=== PATIENT | male | born 1935 | race African-American/Black ===

== ENCOUNTER 2018-05-23 15:08 | Inpatient (IN) | payer OTHER ==
[2018-05-23] MEDS ORDERED: ACETAMINOPHEN 1000 MG/100 ML VIAL (NON FORMULARY) IVPB ONE (15:41)
[2018-05-23] MEDS ORDERED: SODIUM CHLORIDE 1,000 ML IV STA (15:41)
[2018-05-23 16:19] LABS: EOS % 0.2 % (0-4.5); HEMATOCRIT 39.7 % (35.4-49); HEMOGLOBIN 13.3 GM/dL (11.7-16.9); LYMPH % 16.5 % (8-40); MCH 29.5 pg (25.7-33.7); MCHC 33.5 g/dl (32.0-35.9); MEAN PLT VOLUME 8.1 fl (7.5-11.1); MONO % 12.2 % (3.8-10.2); NEUT % 70.1 % (42.8-82.8); PLATELET COUNT 177 K/MM3 (134-434); RBC 4.51 M/mm3 (4.00-5.60); RDW 12.9 % (11.9-15.9); WHITE BLOOD COUNT 3.6 K/mm3 (4.0-10.0)
[2018-05-23 16:21] LABS: VENOUS PC02 49.6 mmHg (38-52); VENOUS PH 7.4 (7.32-7.42); VENOUS PO2 22.4 mmHg (28-48)
[2018-05-23 16:40] LABS: INR 1.07 (0.83-1.09); PROTHROMBIN TIME (PATIENT) 12.6 SEC (9.7-13.0)
--- NOTE | 2018-05-23 16:40 | PDOC ---
Attending Attestation - Resident Resident Name: Levy Maradiaga - ED Attending Attestation I have performed the following: I have examined & evaluated the patient, The case was reviewed & discussed with the resident, I agree w/resident's findings & plan - HPI HPI: 05/23/18 16:40 82 YOM with h/o Parkinsons dementia, HTN, HLD, DM2 presenting with AMS, unwitnessed fall. baseline with dementia and tremors from PK. 05/23/18 16:49 - Physicial Exam PE: 05/23/18 16:50 PE as documented in Resident note. alert, oriented to person only. NAD, PERRL, EOMI, MMM, nl conjunctiva. neck supple, no meningeal signs. RRR, lungs clear. abdomen soft, NTND. warm to touch. no calf tenderness. no peripheral edema. + tremulous. no focal neuro deficits. BROWN x4 - Medical Decision Making 05/23/18 16:51 hpi as documented VS reviewed, +fever Tmax 100.8; normotensive, HR borderline 90-100s. no respiratory distress. DDx. viral syndrome, influenza, pneumonia, sepsis, dehydration, electrolyte/ metabolic derangements. SDH, SAH, EDH, c spine injury /fx, infection, UTI, CVA, SACK REPAIRER abnormality, arrhythmia, ACS. labs and lytes reviewed, +leukopenic mildly noted to 3.6K. lytes are normal lactic_elevated, hydrate and repeat, trend UA_pending influenza pending EKG nonischemic, NSR and nonspecific T wave abnormalities. CXR w/o infiltrative pattern or consolidation/effusion or vascular congestion. given IVF and tylenol for the fever. CT head pending to eval for intracranial abnormality, mass or bleed. CT cspine added r/o fx/injury with unwitnessed fall call to daughter, who resides with pt. anticipate admission for the septic workup, unclear source at time of sign out at 5pm. 05/23/18 16:55 05/26/18 17:03
[2018-05-23 16:42] LABS: URINE APPEARANCE CLEAR; URINE BILIRUBIN NEGATIVE (<2.0 mg/dL); URINE COLOR AMBER; URINE GLUCOSE (UA) 2+ (NEGATIVE); URINE KETONE TRACE (NEGATIVE); URINE LEUK ESTERASE NEGATIVE (NEGATIVE); URINE NITRITE NEGATIVE (NEGATIVE); URINE PROTEIN 2+ (NEGATIVE); URINE UROBILINOGEN 4.0 E.U/dl mg/dL (0.2-1.0)
[2018-05-23 16:42] LABS: ACTIVATED PTT 32.6 SECONDS (25.2-36.5)
[2018-05-23 16:47] LABS: ALBUMIN 3.6 g/dl (3.4-5.0); ALK PHOS 145 U/L (45-117); ANION GAP 10 MMOL/L (8-16); BILIRUBIN,TOTAL 0.7 mg/dL (0.2-1); BLOOD UREA NITROGEN 18 mg/dL (7-18); CHLORIDE 97 mmol/L (98-107); CO2 28 mmol/L (21-32); CREATININE 1.2 mg/dL (0.55-1.3); GLUCOSE,RANDOM 274 mg/dL (74-106); POTASSIUM 3.7 mmol/L (3.5-5.1); SGOT/AST 56 U/L (15-37); SGPT/ALT 37 U/L (13-61); SODIUM 134 mmol/L (136-145); TOT PROT 7.2 g/dl (6.4-8.2)
[2018-05-23 16:51] LABS: URINE MUCUS FEW
--- NOTE | 2018-05-23 16:53 | PDOC ---
History of Present Illness - General Chief Complaint: SIRS, Suspected/Possible Stated Complaint: WEAKNESS Time Seen by Provider: 05/23/18 15:25 History Source: Family Exam Limitations: Clinical Condition - History of Present Illness Initial Comments: 05/23/18 16:58 Patient is an 82M with history of cervical spondylosis, HTN, DM, Parkinson's, dementia (son at bedside, unable to describe normal mental status lives with daughter) here today with lethargy that started two days ago with a fever. Son at bedside states that there was an unmeasured fever two days ago, no other symptoms such as cough, rhinorrhea, shortness of breath or chest pain were noted. Patient denies pain anywhere, but history is limited by his mental status (a&ox1 - self). No sick contacts at home. Past History - Past Medical History Allergies/Adverse Reactions: Allergies Allergy/AdvReac Type Severity Reaction Status Date / Time No Known Allergies Allergy Verified 05/23/18 15:18 Home Medications: Ambulatory Orders Aspirin [Ester Chewable] 81 mg PO DAILY 05/23/18 Atorvastatin Ca [Lipitor] 10 mg PO HS 05/23/18 Donepezil HCl 23 mg PO HS 05/23/18 Lisinopril/Hydrochlorothiazide [Lisinopril-Hctz 10-12.5 mg Tab] 1 each PO DAILY 05/23/18 Memantine HCl [Namenda -] 10 mg PO DAILY 05/23/18 Metformin HCl [Glucophage] 500 mg PO BID 05/23/18 CVA: No COPD: No Dementia: Yes Diabetes: Yes HTN: Yes - Suicide/Smoking/Psychosocial Hx Smoking History: Never smoked Have you smoked in the past 12 months: No Information on smoking cessation initiated: No Hx Alcohol Use: No Drug/Substance Use Hx: No Review of Systems - Review of Systems Able to Perform ROS?: No (2/2 clinical condition) *Physical Exam - Vital Signs Last Vital Signs Temp Pulse Resp BP Pulse Ox 100.8 F H 96 H 20 137/69 97 05/23/18 15:40 05/23/18 16:39 05/23/18 16:39 05/23/18 16:39 05/23/18 16:39 - Physical Exam Comments: 05/23/18 17:00 GENERAL: Awake, alert, and oriented to self, in no acute distress HEAD: No signs of trauma, normocephalic, atraumatic EYES: PERRLA, EOMI, sclera anicteric, conjunctiva clear ENT: Auricles normal inspection, hearing grossly normal, nares patent, oropharynx clear without exudates. Moist mucosa NECK: No meningeal signs LUNGS: No distress, speaks full sentences, clear to auscultation bilaterally HEART: Regular rate and rhythm, normal S1 and S2, no murmurs, rubs or gallops, peripheral pulses normal and equal bilaterally. ABDOMEN: Soft, nontender, normoactive bowel sounds. No guarding, no rebound. No masses EXTREMITIES: Normal inspection, Normal range of motion, no edema. No clubbing or cyanosis. NEUROLOGICAL: Cranial nerves II through XII grossly intact. Mask-like facies, cogwheel rigidity, moves all extremities SKIN: Warm, Dry, normal turgor, no rashes or lesions noted. Moderate Sedation - Procedure Monitoring Vital Signs: Procedure Monitoring Vital Signs Temperature 100.8 F H 05/23/18 15:40 Pulse Rate 96 H 05/23/18 16:39 Respiratory Rate 20 05/23/18 16:39 Blood Pressure 137/69 05/23/18 16:39 O2 Sat by Pulse Oximetry (%) 97 05/23/18 16:39 ED Treatment Course - LABORATORY CBC & Chemistry Diagram: 05/23/18 16:04 05/23/18 16:04 - ADDITIONAL ORDERS Additional order review: Laboratory Results 05/23/18 05/23/18 05/23/18 16:31 16:04 16:04 PT with INR INR PTT (Actin FS) VBG pH POC VBG pCO2 POC VBG pO2 Mixed VBG HCO3 Sodium 134 L Potassium 3.7 Chloride 97 L Carbon Dioxide 28 Anion Gap 10 BUN 18 Creatinine 1.2 Creat Clearance w eGFR 57.96 Random Glucose 274 H Calcium 9.0 Total Bilirubin 0.7 AST 56 H ALT 37 Alkaline Phosphatase 145 H Troponin I 0.04 Total Protein 7.2 Albumin 3.6 Urine Color Ann-Marie Urine Appearance Clear Urine pH 5.0 Ur Specific [place] 1.025 Urine Protein 2+ H Urine Glucose (UA) 2+ H Urine Ketones Trace H Urine Blood Negative Urine Nitrite Negative Urine Bilirubin Negative Urine Urobilinogen 4.0 e.u/dl Ur Leukocyte Esterase Negative Urine WBC (Auto) <1 Urine RBC (Auto) <1 Urine Mucus Few 05/23/18 05/23/18 16:04 16:04 PT with INR 12.60 INR 1.07 PTT (Actin FS) 32.6 VBG pH 7.40 POC VBG pCO2 49.6 POC VBG pO2 22.4 L Mixed VBG HCO3 29.9 H Sodium Potassium Chloride Carbon Dioxide Anion Gap BUN Creatinine Creat Clearance w eGFR Random Glucose Calcium Total Bilirubin AST ALT Alkaline Phosphatase Troponin I Total Protein Albumin Urine Color Urine Appearance Urine pH Ur Specific [place] Urine Protein Urine Glucose (UA) Urine Ketones Urine Blood Urine Nitrite Urine Bilirubin Urine Urobilinogen Ur Leukocyte Esterase Urine WBC (Auto) Urine RBC (Auto) Urine Mucus 05/23/18 16:04 RBC 4.51 MCV 88.0 MCHC 33.5 RDW 12.9 MPV 8.1 Neutrophils % 70.1 Lymphocytes % 16.5 Monocytes % 12.2 H Eosinophils % 0.2 Basophils % 1.0 - RADIOLOGY Radiology Studies Ordered: Category Date Time Status CERVICAL SPINE CT W/O CONTR [CT] Stat CT Scan 05/23/18 15:[address] WITHOUT CONTRAST [CT] Stat CT Scan 05/23/18 15:41 Ordered CHEST X-RAY PORTABLE* [RAD] Stat Radiology 05/23/18 15:40 Taken - Medications Given in the ED: ED Medications Discontinued Medications Generic Name Dose Route Start Last Admin Trade Name Bernardoq PRN Reason Stop Dose Admin Acetaminophen 1,000 mg 05/23/18 15:41 05/23/18 16:17 Ofirmev Injection - IVPB 05/23/18 15:42 1,000 mg ONCE ONE Administration Sodium Chloride 1,000 mls @ 1,000 mls/hr 05/23/18 15:41 05/23/18 16:17 Normal Saline - IV 05/23/18 16:40 1,000 mls/hr ASDIR STA Administration Medical Decision Making - Medical Decision Making 05/23/18 17:02 Patient is an 82M with history of cervical spondylosis, htn, dm, dementia here today with altered mental status. No focal symptoms on exam, but history and exam limited by patient's mental status. DDx is broad, and includes, but is not limited to: UTI, pneumonia, syncope, viral syndrome. Febrile to 100.8, septic workup initiated. Head CT added CBC, CMP normal. UA normal. CXR shows no infiltrate, but limited in quality. Lactate >4. Given 1L fluid so far and BPs stable. No source, will wagner-scan to attempt to find source of infection. 05/23/18 19:24 Lactate improving, 3.3. Patient barely able to tolerate wagner-scan, repeated attempts had to be made given agitation. 05/23/18 19:26 CT head normal. 05/23/18 20:59 CT C-spine negative for acute pathology. 05/23/18 21:21 CT chest shows ? infiltrate in lingula and LLL. Will admit for pneumonia. *DC/Admit/Observation/Transfer Diagnosis at time of Disposition: Pneumonia - Discharge Dispostion Condition at time of disposition: Stable Decision to Admit order: Yes - Referrals Referrals: Keke Pena MD [Primary Care Provider] - - Patient Instructions - Post Discharge Activity
[2018-05-23] MEDS ORDERED: VANCOMYCIN 1 GM in D5W (PRE-DOCKED) 1,000 MG/250 ML IVPB ONE (16:55)
[2018-05-23] MEDS ORDERED: PIPERACILLIN/TAZOB 4.5 GM 4.5 GM in DEXTROSE 5%-WATER 100 ML IVPB ONE (16:56)
[2018-05-23] MEDS ORDERED: PIPERACILLIN/TAZOB 4.5 GM 4.5 GM/100 ML BAG IVPB ONE (18:26)
[2018-05-23] MEDS ORDERED: VANCOMYCIN 1 GRAM (PRE-DOCKED) 1,000 MG/250 ML BAG IVPB ONE ×2 (18:26)
[2018-05-23] MEDS ORDERED: ERYTHROMYCIN 0.5% OPHTHALMIC OINTMENT 3.5 GM TUBE OS ONE (21:49)
[2018-05-23] MEDS ORDERED: ERYTHROMYCIN 0.5% OPHTHALMIC OINTMENT 3.5 GM TUBE ONE ×2 (21:52→23:11)
[2018-05-23] MEDS ORDERED: SODIUM CHLORIDE 1,000 ML IV SCH (22:45)
--- NOTE | 2018-05-23 23:09 | HP ---
PCP: Keke Pena CHIEF COMPLAINT: Lethargy HISTORY OF PRESENT ILLNESS: This is an 82 year old man who comes to the ED with his son because of lethargy. The patient has dementia and is unable to provide a history. Family reported that he has been having fevers and has appeared lethargic at home for the last 2 days. Nothing else unusual was noted. PAST MEDICAL HISTORY Hypertension Type 2 DM Dementia Cervical spondylosis PAST SURGICAL HISTORY Unobtainable Social History: Smoking: Never smoked as per ED record Alcohol: No as per ED record Drugs: No as per ED record Recent Travel: None Family History: Unable to obtain Allergies No Known Allergies Allergy (Verified 05/23/18 15:18) Home Medications Medication Instructions Recorded Aspirin [Ester Chewable] 81 mg PO DAILY 05/23/18 Atorvastatin Ca [Lipitor] 10 mg PO HS 05/23/18 Donepezil HCl 23 mg PO HS 05/23/18 Lisinopril/Hydrochlorothiazide 1 each PO DAILY 05/23/18 [Lisinopril-Hctz 10-12.5 mg Tab] Memantine HCl [Namenda -] 10 mg PO DAILY 05/23/18 Metformin HCl [Glucophage] 500 mg PO BID 05/23/18 REVIEW OF SYSTEMS Unable to obtain PHYSICAL EXAMINATION Vital Signs - 24 hr 05/23/18 05/23/18 05/23/18 15:11 15:40 16:39 Temperature 99.3 F 100.8 F H Pulse Rate 101 H Pulse Rate [ 96 H Apical] Respiratory 20 20 Rate Blood Pressure 130/84 Blood Pressure 137/69 [Right Arm] O2 Sat by Pulse 97 97 Oximetry (%) 05/23/18 21:44 Temperature 98.0 F Pulse Rate Pulse Rate [ 90 Apical] Respiratory 20 Rate Blood Pressure Blood Pressure 130/70 [Right Arm] O2 Sat by Pulse 100 Oximetry (%) GENERAL: Awake, alert, and oriented only to person, in no acute distress. HEAD: Normal with no signs of trauma. EYES: Pupils equal, round and reactive to light, sclerae anicteric, bilateral thick yellow drainage. EARS, NOSE, THROAT: Ears normal, nares patent, oropharynx clear without exudates. Moist mucous membranes. NECK: Normal range of motion, supple without lymphadenopathy, JVD, or masses. LUNGS: Breath sounds equal, clear to auscultation bilaterally with poor inspiratory effort. No wheezes, and no crackles. No accessory muscle use. HEART: Regular rate and rhythm, normal S1 and S2 without murmur, rub or gallop. ABDOMEN: Soft, nontender, not distended, normoactive bowel sounds, no guarding, no rebound, no masses. No hepatomegaly or splenomegaly. MUSCULOSKELETAL: Normal range of motion at all joints. No bony deformities or tenderness. No CVA tenderness. UPPER EXTREMITIES: 2+ pulses, warm, well-perfused. No cyanosis. No clubbing. No peripheral edema. LOWER EXTREMITIES: 2+ pulses, warm, well-perfused. No calf tenderness. No peripheral edema. NEUROLOGICAL: Unable to fully assess - patient not cooperative with exam. PSYCHIATRIC: Unable to assess. SKIN: Warm, dry, normal turgor; multiple small raised erythematous lesions over both arms, chest, abdomen, both upper legs; normal capillary refill. Laboratory Results - last 24 hr 05/23/18 05/23/18 05/23/18 16:04 16:04 16:04 WBC 3.6 L RBC 4.51 Hgb 13.3 Hct 39.7 MCV 88.0 MCH 29.5 MCHC 33.5 RDW 12.9 Plt Count 177 MPV 8.1 Absolute Neuts (auto) 2.6 Neutrophils % 70.1 Lymphocytes % 16.5 Monocytes % 12.2 H Eosinophils % 0.2 Basophils % 1.0 Nucleated RBC % 0 PT with INR 12.60 INR 1.07 PTT (Actin FS) 32.6 VBG pH 7.40 POC VBG pCO2 49.6 POC VBG pO2 22.4 L Mixed VBG HCO3 29.9 H Sodium Potassium Chloride Carbon Dioxide Anion Gap BUN Creatinine Creat Clearance w eGFR Random Glucose Lactic Acid Calcium Total Bilirubin AST ALT Alkaline Phosphatase Troponin I Total Protein Albumin Urine Color Urine Appearance Urine pH Ur Specific [place] Urine Protein Urine Glucose (UA) Urine Ketones Urine Blood Urine Nitrite Urine Bilirubin Urine Urobilinogen Ur Leukocyte Esterase Urine WBC (Auto) Urine RBC (Auto) Urine Mucus Influenza A (Rapid) Influenza B (Rapid) 05/23/18 05/23/18 05/23/18 16:04 16:04 16:04 WBC RBC Hgb Hct MCV MCH MCHC RDW Plt Count MPV Absolute Neuts (auto) Neutrophils % Lymphocytes % Monocytes % Eosinophils % Basophils % Nucleated RBC % PT with INR INR PTT (Actin FS) VBG pH POC VBG pCO2 POC VBG pO2 Mixed VBG HCO3 Sodium 134 L Potassium 3.7 Chloride 97 L Carbon Dioxide 28 Anion Gap 10 BUN 18 Creatinine 1.2 Creat Clearance w eGFR 57.96 Random Glucose 274 H Lactic Acid 4.3 H* Calcium 9.0 Total Bilirubin 0.7 AST 56 H ALT 37 Alkaline Phosphatase 145 H Troponin I 0.04 Total Protein 7.2 Albumin 3.6 Urine Color Urine Appearance Urine pH Ur Specific [place] Urine Protein Urine Glucose (UA) Urine Ketones Urine Blood Urine Nitrite Urine Bilirubin Urine Urobilinogen Ur Leukocyte Esterase Urine WBC (Auto) Urine RBC (Auto) Urine Mucus Influenza A (Rapid) Influenza B (Rapid) 05/23/18 05/23/18 05/23/18 16:31 16:31 18:22 WBC RBC Hgb Hct MCV MCH MCHC RDW Plt Count MPV Absolute Neuts (auto) Neutrophils % Lymphocytes % Monocytes % Eosinophils % Basophils % Nucleated RBC % PT with INR INR PTT (Actin FS) VBG pH POC VBG pCO2 POC VBG pO2 Mixed VBG HCO3 Sodium Potassium Chloride Carbon Dioxide Anion Gap BUN Creatinine Creat Clearance w eGFR Random Glucose Lactic Acid 3.3 H* Calcium Total Bilirubin AST ALT Alkaline Phosphatase Troponin I Total Protein Albumin Urine Color Ann-Marie Urine Appearance Clear Urine pH 5.0 Ur Specific [place] 1.025 Urine Protein 2+ H Urine Glucose (UA) 2+ H Urine Ketones Trace H Urine Blood Negative Urine Nitrite Negative Urine Bilirubin Negative Urine Urobilinogen 4.0 e.u/dl Ur Leukocyte Esterase Negative Urine WBC (Auto) <1 Urine RBC (Auto) <1 Urine Mucus Few Influenza A (Rapid) Negative Influenza B (Rapid) Negative Chest x-ray: No acute process Head CT: Mild chronic small vessel ischemic changes. Otherwise, negative unenhanced CT of the brain. C-spine CT: No acute cervical fracture. Multilevel degenerative changes with spinal stenosis and neural foraminal narrowing, as described above on a level by level basis. Chest CT: Mild elevation of the left hemidiaphragm. Mild consolidations in the adjacent lingula and left lower lobe may be due to chronic atelectasis, scarring , or infiltrates. Scattered atelectasis and fibrotic changes in the remainder of the lungs. No pleural effusions or pneumothorax. No evidence for aortic dissection. No obvious pulmonary embolism but this exam is not optimized to evaluate the pulmonary arteries. Mild cardiomegaly without significant pericardial effusion. Mild gynecomastia. CT abdomen/pelvis: Small left hepatic cyst. The gallbladder, pancreas, adrenal glands, and spleen are grossly unremarkable. Bilateral renal cortical scarring and left renal cysts. No renal or urinary calculi. No AAA. No evidence for diverticulitis, small bowel obstruction, free fluid, or free air. Prior proximal colon partial resection. ASSESSMENT/PLAN: This is an 82 year old man with a history of HTN, hyperlipidemia, type 2 DM, dementia who presented to the ED with fevers and lethargy x 2 days. 1. Severe sepsis (temp 100.8, HR 101, WBC 3.6, lactic acid 4.3) secondary to pneumonia - Continue IV fluid - Monitor lactic acid - Zosyn, Vancomycin given in ED - Start Rocephin, Zithromax - Oxygen to maintain saturation >90% - Hold metformin 2. Hypertension - Continue lisinopril, HCTZ 3. Hyperlipidemia - Continue Lipitor 4. Type 2 DM - Hold metformin secondary to lactic acidemia - Fingersticks with Novolog sliding scale 5. 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 Dementia - Continue Namenda, Aricept Visit type - Emergency Visit Emergency Visit: Yes Care time: The patient presented to the Emergency Department on the above date and was hospitalized for further evaluation of their emergent condition. - New Patient This patient is new to me today: Yes Date on this admission: 05/23/18 - Critical Care Critical Care patient: No
[2018-05-23] MEDS: ATORVASTATIN CA 10 MG TABLET (FP) PO SCH (23:19)
[2018-05-24] MEDS: CIPROFLOXACIN HCL 0.3% OPHTH 2.5ML BOTTLE OU SCH ×5 (06:02→22:05)
[2018-05-24] MEDS ORDERED: HEPARIN NA (PORCINE) 5,000 UNITS/ML 1ML VIAL ONE (06:03)
[2018-05-24] MEDS: HEPARIN NA (PORCINE) 5,000 UNITS/ML 1ML VIAL SQ SCH ×3 (06:07→22:05)
[2018-05-24] MEDS ORDERED: INSULIN (NOVOLOG) ASPART 100 UNITS/ML 10ML VIAL ONE (06:09)
[2018-05-24 06:51] LABS: EOS % 0.2 % (0-4.5); HEMATOCRIT 36.1 % (35.4-49); LYMPH % 20.8 % (8-40); MCH 28.7 pg (25.7-33.7); MCHC 33.3 g/dl (32.0-35.9); MEAN CELL VOLUME 86.3 fl (80-96); MEAN PLT VOLUME 8.6 fl (7.5-11.1); MONO % 12.7 % (3.8-10.2); NEUT % 65.3 % (42.8-82.8); PLATELET COUNT 180 K/MM3 (134-434); RBC 4.18 M/mm3 (4.00-5.60); RDW 12.9 % (11.9-15.9); WHITE BLOOD COUNT 3.1 K/mm3 (4.0-10.0)
[2018-05-24] MEDS: INSULIN SLIDING SCALE (NOVOLOG) 1 VIAL SQ SCH ×4 (07:02→21:49)
[2018-05-24 07:13] LABS: ANION GAP 8 MMOL/L (8-16); BLOOD UREA NITROGEN 14 mg/dL (7-18); CALCIUM 8.5 mg/dL (8.5-10.1); CHLORIDE 99 mmol/L (98-107); CO2 29 mmol/L (21-32); CREATININE 0.9 mg/dL (0.55-1.3); GLUCOSE,RANDOM 150 mg/dL (74-106); POTASSIUM 3.4 mmol/L (3.5-5.1); SODIUM 136 mmol/L (136-145)
[2018-05-24] MEDS ORDERED: ACETAMINOPHEN 325 MG TABLET (FP) PO PRN (07:24)
[2018-05-24] MEDS ORDERED: AZITHROMYCIN IVPB 500 MG/250 ML BAG IVPB SCH (10:00)
[2018-05-24] MEDS ORDERED: CEFTRIAXONE 1 GM in DEXTROSE 5%-WATER - 50 ML IVPB SCH (10:00)
[2018-05-24] MEDS ORDERED: PATIENT'S OWN MEDICATION (NON-FORMULARY) (Lisinopril/Hydrochlorothiazide [Lisinopril-Hctz PO SCH (10:00)
[2018-05-24] MEDS ORDERED: HYDROCHLOROTHIAZIDE 12.5 MG CAPSULE (FP) PO SCH (10:00)
--- NOTE | 2018-05-24 10:06 | EKG ---
Test Reason : Blood Pressure : / mmHG Vent. Rate : 092 BPM Atrial Rate : 092 BPM P-R Int : 128 ms QRS Dur : 080 ms QT Int : 382 ms P-R-T Axes : 000 011 102 degrees QTc Int : 472 ms NORMAL SINUS RHYTHM WITH SINUS ARRHYTHMIA NONSPECIFIC T WAVE ABNORMALITY PROLONGED QT ABNORMAL ECG NO PREVIOUS ECGS AVAILABLE Confirmed by VANESSA VELAZQUEZ MD ([id number]) on 05/24/2018 10:05:41 AM Referred By: Confirmed By:VANESSA VELAZQUEZ MD
[2018-05-24] MEDS: ACETAMINOPHEN 1000 MG/100 ML VIAL (NON FORMULARY) IVPB PRN ×2 (10:40→22:06)
[2018-05-24] MEDS: ASPIRIN 81 MG CHEWABLE TABLETS PO SCH (11:59)
[2018-05-24] MEDS: LISINOPRIL 10 MG TABLET (FP) PO SCH (12:00)
[2018-05-24] MEDS: MEMANTINE HCL 10 MG TABLET (FP) PO SCH (12:00)
--- NOTE | 2018-05-24 13:59 | PN ---
Progress Note (short form) - Note Progress Note: pt seen/ examined chart reviewed. awake having fever. not taking meds bp high Vital Signs Temp 102.0 F H 05/24/18 06:57 Pulse 104 H 05/24/18 06:57 Resp 20 05/24/18 06:57 BP 185/84 H 05/24/18 06:57 Pulse Ox 99 05/24/18 01:02 Intake & Output 05/23/18 05/24/18 05/24/18 23:59 11:59 23:59 Intake Total 200 Output Total 200 Balance 0 Weight 180 lb Intake: IVPB 200 Output: Urine 200 [place] 200 Other: Height 5 ft 10 in Body Mass Index (BMI) 25.8 Weight Measurement Method Est/Stated by Patient Active Medications Acetaminophen (Tylenol -) 650 mg PO Q4H PRN PRN Reason: FEVER Acetaminophen (Ofirmev Injection -) 1,000 mg IVPB Q8H PRN PRN Reason: FEVER Last Admin: 05/24/18 10:40 Dose: 1,000 mg Aspirin (Asa -) 81 mg PO DAILY [facility] Last Admin: 05/24/18 11:59 Dose: 81 mg Atorvastatin Calcium (Lipitor -) 10 mg PO HS [facility] Last Admin: 05/23/18 23:19 Dose: 10 mg Ciprofloxacin (Ciloxan 0.3% Eye Drops -) 1 drop OU Q4HWA [facility] Last Admin: 05/24/18 11:58 Dose: Not Given Heparin Sodium (Porcine) (Heparin -) 5,000 unit SQ TID [facility] Last Admin: 05/24/18 06:07 Dose: 5,000 unit Azithromycin (Zithromax 500mg Ivpb (Pre-Docked)) 500 mg in 250 mls @ 250 mls/ hr IVPB DAILY [facility] Ceftriaxone Sodium 1 gm/ (Dextrose) 50 mls @ 100 mls/hr IVPB DAILY [facility]; Protocol Potassium Chloride/Dextrose/Sod Cl (D5-1/2ns+20 Meq Kcl -) 20 meq in 1,000 mls @ 100 mls/hr IV ASDIR [facility] Insulin Aspart (Novolog Vial Sliding Scale -) 1 vial SQ ACHS [facility]; Protocol Last Admin: 05/24/18 11:57 Dose: Not Given Lisinopril (Prinivil) 10 mg PO DAILY [facility] Last Admin: 05/24/18 12:00 Dose: 10 mg Memantine (Namenda -) 10 mg PO DAILY [facility] Last Admin: 05/24/18 12:00 Dose: 10 mg Nitroglycerin (Nitro-Bid 2% Paste -) 0.5 inch TD ONCE ONE Stop: 05/24/18 13:57 Non-Formulary Medication (Donepezil Hcl [Donepezil Hcl]) 23 mg PO HS [facility] CBC, BMP 05/24/18 05:55 05/24/18 05:55 physical exam Drowsy but arousable Neck--supple Lungs--diminished Abdomen--soft Extremities--no edema assessment and plan Likley pneumonia abx i/d consult--- change fluids -- d5 1/2 ns for now with k supplement hold hctz for now nitro paste today for bp f/u cultures. f/u labs will follow discussed with patient's son also Problem List - Problems (1) Dementia Code(s): F03.90 - UNSPECIFIED DEMENTIA WITHOUT BEHAVIORAL DISTURBANCE (2) Hypertension Code(s): I10 - ESSENTIAL (PRIMARY) HYPERTENSION (3) Pneumonia Code(s): J18.9 - PNEUMONIA, UNSPECIFIED ORGANISM
[2018-05-24] MEDS ORDERED: NITROGLYCERIN 2% OINTMENT - 1GM PACKET TD ONE (14:30)
--- NOTE | 2018-05-24 15:13 | CON.ID ---
Consult Consult Specialty:: infectious diseases Referred by:: Reason for Consultation:: pneumonia - History of Present Illness Chief Complaint: confusion History of Present Illness: 82M with history of cervical spondylosis, HTN, DM, Parkinson's, dementia here today with lethargy that started two days ago with a fever. Son at bedside states that there was an unmeasured fever two days ago, no other symptoms such as cough, rhinorrhea, shortness of breath or chest pain were noted. Patient denies pain anywhere, but history is limited by his mental status . No sick contacts at home. patient is confused no history available history obtained from the charts - History Source History Provided By: Medical Record Limitations to Obtaining History: Clinical Condition - Alcohol/Substance Use Hx Alcohol Use: No - Smoking History Smoking history: Never smoked Have you smoked in the past 12 months: No Home Medications - Allergies Allergies/Adverse Reactions: Allergies Allergy/AdvReac Type Severity Reaction Status Date / Time No Known Allergies Allergy Verified 05/23/18 15:18 - Home Medications Home Medications: Ambulatory Orders Aspirin [Ester Chewable] 81 mg PO DAILY 05/23/18 Atorvastatin Ca [Lipitor] 10 mg PO HS 05/23/18 Lisinopril/Hydrochlorothiazide [Lisinopril-Hctz 10-12.5 mg Tab] 1 each PO DAILY 05/23/18 Memantine HCl [Namenda -] 10 mg PO DAILY 05/23/18 Metformin HCl [Glucophage] 500 mg PO BID 05/23/18 RX: Donepezil HCl 23 mg PO HS 05/23/18 Review of Systems Unable to obtain ROS, reason: unable to obtsin Physical Exam Vital Signs: Vital Signs Temperature 102.0 F H 05/24/18 06:57 Pulse Rate 104 H 05/24/18 06:57 Respiratory Rate 20 05/24/18 06:57 Blood Pressure 185/84 H 05/24/18 06:57 O2 Sat by Pulse Oximetry (%) 99 05/24/18 01:02 Constitutional: Yes: Well Nourished, No Distress, Calm Eyes: Yes: Conjunctiva Clear HENT: Yes: Atraumatic, Normocephalic Neck: Yes: Supple, Trachea Midline Cardiovascular: Yes: Regular Rate and Rhythm Respiratory: Yes: Regular, Poor Air Entry (resp effort) Gastrointestinal: Yes: Normal Bowel Sounds, Soft Musculoskeletal: Yes: WNL Extremities: Yes: WNL Neurological: Yes: Alert, Other (oriented to himself) Psychiatric: Yes: Alert, Other Labs: CBC, BMP 05/24/18 05:55 05/24/18 05:55 Imaging - Results Chest X-ray: Report Reviewed, Image Reviewed Cat Scan: Report Reviewed, Image Reviewed Assessment/Plan patients findings noted elevation of diaphragm noted Problem List - Problems (1) Fecal impaction Code(s): K56.41 - FECAL IMPACTION (2) Dementia Code(s): F03.90 - UNSPECIFIED DEMENTIA WITHOUT BEHAVIORAL DISTURBANCE (3) Hypertension Code(s): I10 - ESSENTIAL (PRIMARY) HYPERTENSION (4) Pneumonia Code(s): J18.9 - PNEUMONIA, UNSPECIFIED ORGANISM plann await for cx r/o uti jennifer guajardo close watch on how patient responds rest as per the team
[2018-05-24] MEDS: D5-1/2NS+20 MEQ KCL - 20 MEQ/1,000 ML INFUS.BAG IV SCH (16:09)
[2018-05-24] MEDS: PIPERACILLIN/TAZOB 3.375 GM 3.375 GM in DEXTROSE 5%-WATER - 50 ML IVPB SCH (19:21)
[2018-05-24] MEDS ORDERED: PATIENT'S OWN MEDICATION (NON-FORMULARY) (Donepezil Hcl [Donepezil Hcl] 23 MG) PO SCH (22:00)
[2018-05-24] MEDS: ATORVASTATIN CA 10 MG TABLET (FP) PO SCH (22:35)
[2018-05-25] MEDS: PIPERACILLIN/TAZOB 3.375 GM 3.375 GM in DEXTROSE 5%-WATER - 50 ML IVPB SCH ×3 (01:45→17:26)
[2018-05-25] MEDS: INSULIN SLIDING SCALE (NOVOLOG) 1 VIAL SQ SCH ×4 (06:07→21:47)
[2018-05-25] MEDS: CIPROFLOXACIN HCL 0.3% OPHTH 2.5ML BOTTLE OU SCH ×5 (06:07→21:47)
[2018-05-25] MEDS: HEPARIN NA (PORCINE) 5,000 UNITS/ML 1ML VIAL SQ SCH ×3 (06:07→21:46)
[2018-05-25 08:19] LABS: BASO % 1.8 % (0-2.0); EOS % 0.5 % (0-4.5); HEMATOCRIT 33.7 % (35.4-49); HEMOGLOBIN 11.2 GM/dL (11.7-16.9); LYMPH % 25.4 % (8-40); MCH 28.7 pg (25.7-33.7); MCHC 33.2 g/dl (32.0-35.9); MEAN CELL VOLUME 86.5 fl (80-96); MEAN PLT VOLUME 8.6 fl (7.5-11.1); MONO % 13.8 % (3.8-10.2); NEUT % 58.5 % (42.8-82.8); PLATELET COUNT 179 K/MM3 (134-434); RBC 3.89 M/mm3 (4.00-5.60); RDW 13.1 % (11.9-15.9); WHITE BLOOD COUNT 2.9 K/mm3 (4.0-10.0)
[2018-05-25 08:49] LABS: ALK PHOS 114 U/L (45-117); ANION GAP 8 MMOL/L (8-16); BILIRUBIN,TOTAL 0.6 mg/dL (0.2-1); BLOOD UREA NITROGEN 16 mg/dL (7-18); CALCIUM 7.8 mg/dL (8.5-10.1); CHLORIDE 100 mmol/L (98-107); CO2 29 mmol/L (21-32); GLUCOSE,RANDOM 164 mg/dL (74-106); POTASSIUM 3.4 mmol/L (3.5-5.1); SGOT/AST 63 U/L (15-37); SGPT/ALT 41 U/L (13-61); SODIUM 136 mmol/L (136-145); TOT PROT 6.4 g/dl (6.4-8.2)
[2018-05-25] MEDS ORDERED: PIPERACILLIN/TAZOBACTAM 3.375 GM VIAL IVPB ONE ×2 (09:44→17:13)
[2018-05-25] MEDS ORDERED: DEXTROSE 5%-WATER - 50 ML IVPB ONE ×2 (09:44→17:13)
[2018-05-25] MEDS: MEMANTINE HCL 10 MG TABLET (FP) PO SCH (09:48)
[2018-05-25] MEDS: ASPIRIN 81 MG CHEWABLE TABLETS PO SCH (09:48)
[2018-05-25] MEDS: LISINOPRIL 10 MG TABLET (FP) PO SCH (09:48)
[2018-05-25] MEDS ORDERED: PT OWN MED DRAWER 7, Y5N ONE (09:50)
[2018-05-25] MEDS: D5-1/2NS+20 MEQ KCL - 20 MEQ/1,000 ML INFUS.BAG IV SCH ×3 (11:36→23:19)
[2018-05-25] MEDS: ACETAMINOPHEN 1000 MG/100 ML VIAL (NON FORMULARY) IVPB PRN (12:29)
[2018-05-25 12:52] VITALS: BMI 27.6
--- NOTE | 2018-05-25 12:57 | PN ---
Progress Note (short form) - Note Progress Note: events noted pt is awake dementia no distress Vital Signs - 24 hr 05/24/18 05/24/18 05/24/18 16:05 22:00 22:16 Temperature 98.7 F 101.9 F H Pulse Rate 87 94 H Respiratory 18 18 Rate Blood Pressure 120/70 157/71 O2 Sat by Pulse 98 Oximetry (%) 05/25/18 05/25/18 05/25/18 01:15 04:31 04:50 Temperature 98.5 F 98.7 F Pulse Rate 92 H 97 H Respiratory 18 19 19 Rate Blood Pressure 129/61 132/77 O2 Sat by Pulse 98 Oximetry (%) 05/25/18 05/25/18 05/25/18 05:00 09:00 12:07 Temperature 98.4 F 99.2 F 102.1 F H Pulse Rate 91 H 98 H Respiratory 19 20 Rate Blood Pressure 136/64 141/80 O2 Sat by Pulse Oximetry (%) Current Medications Generic Name Dose Route Start Last Admin Trade Name Freq PRN Reason Stop Dose Admin Acetaminophen 650 mg 05/24/18 07:24 Tylenol - PO Q4H PRN FEVER Acetaminophen 1,000 mg 05/24/18 10:28 05/25/18 12:29 Ofirmev Injection - IVPB 1,000 mg Q8H PRN Administration FEVER Aspirin 81 mg 05/24/18 10:00 05/25/18 09:48 Asa - PO 81 mg DAILY ALISSA Administration Atorvastatin Calcium 10 mg 05/23/18 23:00 05/24/18 22:35 Lipitor - PO 10 mg HS ALISSA Administration Ciprofloxacin 1 drop 05/24/18 06:00 05/25/18 09:51 Ciloxan 0.3% Eye Drops - OU 1 drop Q4HWA ALISSA Administration Heparin Sodium (Porcine) 5,000 unit 05/24/18 06:00 05/25/18 06:07 Heparin - SQ 5,000 unit TID ALISSA Administration Potassium Chloride/Dextrose/Sod Cl 20 meq in 1,000 mls @ 100 mls/hr 05/24/18 14:00 05/25/18 11:36 D5-1/2ns+20 Meq Kcl - IV 100 mls/hr ASDIR ALISSA Administration Piperacillin Sod/Tazobactam 50 mls @ 100 mls/hr 05/24/18 18:00 05/25/18 09:48 Sod 3.375 gm/ Dextrose IVPB 100 mls/hr Q8H-IV ALISSA Administration Protocol Insulin Aspart 1 vial 05/24/18 07:00 05/25/18 11:32 Novolog Vial Sliding Scale - SQ 4 units ACHS ALISSA Administration Protocol Lisinopril 10 mg 05/24/18 10:00 05/25/18 09:48 Prinivil PO 10 mg DAILY ALISSA Administration Memantine 10 mg 05/24/18 10:00 05/25/18 09:48 Namenda - PO 10 mg DAILY ALISSA Administration Non-Formulary Medication 23 mg 05/24/18 22:00 Donepezil Hcl [Donepezil Hcl] PO [facility] Laboratory Results - last 24 hr 05/25/18 05/25/18 05/25/18 06:04 07:00 07:00 WBC 2.9 L RBC 3.89 L Hgb 11.2 L Hct 33.7 L MCV 86.5 MCH 28.7 MCHC 33.2 RDW 13.1 Plt Count 179 MPV 8.6 Absolute Neuts (auto) 1.7 Neutrophils % 58.5 Lymphocytes % 25.4 D Monocytes % 13.8 H Eosinophils % 0.5 D Basophils % 1.8 Nucleated RBC % 0 Sodium 136 Potassium 3.4 L Chloride 100 Carbon Dioxide 29 Anion Gap 8 BUN 16 Creatinine 1.0 Creat Clearance w eGFR > 60 POC Glucometer 182 Random Glucose 164 H Calcium 7.8 L Total Bilirubin 0.6 AST 63 H ALT 41 Alkaline Phosphatase 114 Total Protein 6.4 Albumin 3.0 L 05/25/18 11:31 WBC RBC Hgb Hct MCV MCH MCHC RDW Plt Count MPV Absolute Neuts (auto) Neutrophils % Lymphocytes % Monocytes % Eosinophils % Basophils % Nucleated RBC % Sodium Potassium Chloride Carbon Dioxide Anion Gap BUN Creatinine Creat Clearance w eGFR POC Glucometer 206 Random Glucose Calcium Total Bilirubin AST ALT Alkaline Phosphatase Total Protein Albumin S1 S2 RRR Lungs decreased breath sounds Abd-soft, NT no edema PLAN cultures negative on iv antibiotics iv fluids ID eval noted BP is better controlled Problem List - Problems (1) Fecal impaction Code(s): K56.41 - FECAL IMPACTION (2) Dementia Code(s): F03.90 - UNSPECIFIED DEMENTIA WITHOUT BEHAVIORAL DISTURBANCE (3) Hypertension Code(s): I10 - ESSENTIAL (PRIMARY) HYPERTENSION (4) Pneumonia Code(s): J18.9 - PNEUMONIA, UNSPECIFIED ORGANISM
--- NOTE | 2018-05-25 15:20 | PN ---
Progress Note, Physician History of Present Illness: patient more stable more alert comfortable - Current Medication List Current Medications: Active Medications Acetaminophen (Tylenol -) 650 mg PO Q4H PRN PRN Reason: FEVER Acetaminophen (Ofirmev Injection -) 1,000 mg IVPB Q8H PRN PRN Reason: FEVER Last Admin: 05/25/18 12:29 Dose: 1,000 mg Aspirin (Asa -) 81 mg PO DAILY [facility] Last Admin: 05/25/18 09:48 Dose: 81 mg Atorvastatin Calcium (Lipitor -) 10 mg PO HS [facility] Last Admin: 05/24/18 22:35 Dose: 10 mg Ciprofloxacin (Ciloxan 0.3% Eye Drops -) 1 drop OU Q4HWA [facility] Last Admin: 05/25/18 14:49 Dose: 1 drop Heparin Sodium (Porcine) (Heparin -) 5,000 unit SQ TID [facility] Last Admin: 05/25/18 14:48 Dose: 5,000 unit Potassium Chloride/Dextrose/Sod Cl (D5-1/2ns+20 Meq Kcl -) 20 meq in 1,000 mls @ 100 mls/hr IV ASDIR [facility] Last Admin: 05/25/18 14:48 Dose: Not Given Piperacillin Sod/Tazobactam (Sod 3.375 gm/ Dextrose) 50 mls @ 100 mls/hr IVPB Q8H-IV ALISSA; Protocol Last Admin: 05/25/18 09:48 Dose: 100 mls/hr Insulin Aspart (Novolog Vial Sliding Scale -) 1 vial SQ ACHS [facility]; Protocol Last Admin: 05/25/18 11:32 Dose: 4 units Lisinopril (Prinivil) 10 mg PO DAILY [facility] Last Admin: 05/25/18 09:48 Dose: 10 mg Memantine (Namenda -) 10 mg PO DAILY [facility] Last Admin: 05/25/18 09:48 Dose: 10 mg Non-Formulary Medication (Donepezil Hcl [Donepezil Hcl]) 23 mg PO HS [facility] - Objective Vital Signs: Vital Signs Temperature 102.1 F H 05/25/18 12:07 Pulse Rate 98 H 05/25/18 09:00 Respiratory Rate 20 05/25/18 09:00 Blood Pressure 141/80 05/25/18 09:00 O2 Sat by Pulse Oximetry (%) 98 05/25/18 04:50 Constitutional: Yes: No Distress, Calm Cardiovascular: Yes: Regular Rate and Rhythm Respiratory: Yes: Regular, CTA Bilaterally Gastrointestinal: Yes: Normal Bowel Sounds, Soft Musculoskeletal: Yes: WNL Extremities: Yes: WNL Neurological: Yes: Alert, Other Labs: CBC, BMP 05/25/18 07:00 05/25/18 07:00 INR, PTT INR 1.07 (0.83-1.09) 05/23/18 16:04 Assessment/Plan patients findings noted elevation of diaphragm noted Problem List - Problems (1) Fecal impaction Code(s): K56.41 - FECAL IMPACTION (2) Dementia Code(s): F03.90 - UNSPECIFIED DEMENTIA WITHOUT BEHAVIORAL DISTURBANCE (3) Hypertension Code(s): I10 - ESSENTIAL (PRIMARY) HYPERTENSION (4) Pneumonia Code(s): J18.9 - PNEUMONIA, UNSPECIFIED ORGANISM plann cx reports noted ct abx for now hydration monitor mental status rest as per the team
[2018-05-25] MEDS: ATORVASTATIN CA 10 MG TABLET (FP) PO SCH (21:46)
[2018-05-25] MEDS: POLYETHYLENE GLYCOL 3350 119 GM BTL PO SCH (21:47)
[2018-05-26] MEDS: PIPERACILLIN/TAZOB 3.375 GM 3.375 GM in DEXTROSE 5%-WATER - 50 ML IVPB SCH ×3 (02:38→18:33)
[2018-05-26] MEDS: ACETAMINOPHEN 1000 MG/100 ML VIAL (NON FORMULARY) IVPB PRN (02:50)
[2018-05-26] MEDS: INSULIN SLIDING SCALE (NOVOLOG) 1 VIAL SQ SCH ×4 (06:44→22:48)
[2018-05-26] MEDS: HEPARIN NA (PORCINE) 5,000 UNITS/ML 1ML VIAL SQ SCH ×3 (06:44→22:42)
[2018-05-26] MEDS: CIPROFLOXACIN HCL 0.3% OPHTH 2.5ML BOTTLE OU SCH ×5 (06:44→22:49)
[2018-05-26] MEDS ORDERED: PT OWN MED DRAWER 7, Y5N ONE (10:42)
[2018-05-26] MEDS ORDERED: PIPERACILLIN/TAZOBACTAM 3.375 GM VIAL IVPB ONE ×2 (10:42→18:31)
[2018-05-26] MEDS ORDERED: DEXTROSE 5%-WATER - 50 ML IVPB ONE ×2 (10:42→18:31)
[2018-05-26] MEDS: POLYETHYLENE GLYCOL 3350 119 GM BTL PO SCH ×2 (10:47→22:42)
[2018-05-26] MEDS: ASPIRIN 81 MG CHEWABLE TABLETS PO SCH (10:47)
[2018-05-26] MEDS: LISINOPRIL 10 MG TABLET (FP) PO SCH (10:47)
[2018-05-26] MEDS: MEMANTINE HCL 10 MG TABLET (FP) PO SCH (10:47)
[2018-05-26] MEDS ORDERED: SENNOSIDES 8.6MG TABLET (FP) PO PRN (11:19)
--- NOTE | 2018-05-26 11:20 | PN ---
Progress Note (short form) - Note Progress Note: events noted still spiking fever refusing to eat Vital Signs - 24 hr 05/25/18 05/25/18 05/26/18 21:00 22:00 02:30 Temperature 100.8 F H 102.2 F H Pulse Rate 90 Respiratory 20 20 Rate Blood Pressure 124/59 L O2 Sat by Pulse 95 Oximetry (%) 05/26/18 05/26/18 05/26/18 06:00 10:00 14:13 Temperature 99.4 F 99 F 98.6 F Pulse Rate 96 H 96 H 113 H Respiratory 20 21 H 19 Rate Blood Pressure 141/60 139/60 140/76 O2 Sat by Pulse Oximetry (%) Current Medications Generic Name Dose Route Start Last Admin Trade Name Freq PRN Reason Stop Dose Admin Acetaminophen 650 mg 05/24/18 07:24 Tylenol - PO Q4H PRN FEVER Aspirin 81 mg 05/24/18 10:00 05/26/18 10:47 Asa - PO 81 mg DAILY ALISSA Administration Atorvastatin Calcium 10 mg 05/23/18 23:00 05/25/18 21:46 Lipitor - PO 10 mg HS ALISSA Administration Ciprofloxacin 1 drop 05/24/18 06:00 05/26/18 14:40 Ciloxan 0.3% Eye Drops - OU 1 drop Q4HWA ALISSA Administration Heparin Sodium (Porcine) 5,000 unit 05/24/18 06:00 05/26/18 14:39 Heparin - SQ 5,000 unit TID ALISSA Administration Potassium Chloride/Dextrose/Sod Cl 20 meq in 1,000 mls @ 100 mls/hr 05/24/18 14:00 05/25/18 23:19 D5-1/2ns+20 Meq Kcl - IV 100 mls/hr ASDIR ALISSA Administration Piperacillin Sod/Tazobactam 50 mls @ 100 mls/hr 05/24/18 18:00 05/26/18 10:47 Sod 3.375 gm/ Dextrose IVPB 100 mls/hr Q8H-IV ALISSA Administration Protocol Insulin Aspart 1 vial 05/24/18 07:00 05/26/18 06:44 Novolog Vial Sliding Scale - SQ 2 units ACHS ALISSA Administration Protocol Lisinopril 10 mg 05/24/18 10:00 05/26/18 10:47 Prinivil PO 10 mg DAILY ALISSA Administration Memantine 10 mg 05/24/18 10:00 05/26/18 10:47 Namenda - PO 10 mg DAILY ALISSA Administration Non-Formulary Medication 23 mg 05/24/18 22:00 Donepezil Hcl [Donepezil Hcl] PO HS ALISSA Polyethylene Glycol 17 gm 05/25/18 22:00 05/26/18 10:47 Miralax (For Daily Use) - PO 17 grams BID ALISSA Administration Senna 2 tab 05/26/18 11:19 Senna - PO HS PRN CONSTIPATION Laboratory Results - last 24 hr 05/25/18 05/25/18 05/26/18 17:27 21:44 06:42 POC Glucometer 206 139 153 05/26/18 13:08 POC Glucometer 211 S1 S2 RRR Lungs decreased breath sounds Abd-soft, NT no edema PLAN cultures negative as per son, pt has good appetite on iv antibiotics iv fluids spoke with ID-- will repeat imaging - CT scans if spiking temp in next 24 hours , will reculture as well . BP is better controlled Problem List - Problems (1) Fecal impaction Code(s): K56.41 - FECAL IMPACTION (2) Dementia Code(s): F03.90 - UNSPECIFIED DEMENTIA WITHOUT BEHAVIORAL DISTURBANCE (3) Hypertension Code(s): I10 - ESSENTIAL (PRIMARY) HYPERTENSION (4) Pneumonia Code(s): J18.9 - PNEUMONIA, UNSPECIFIED ORGANISM
--- NOTE | 2018-05-26 12:18 | CONSULT ---
Admitting History and Physical - Primary Care Physician PCP: Saima Lobo - Admission History of Present Illness: Patient is an 82M with history of cervical spondylosis, HTN, DM, Parkinson's, dementia admitted with lethargy and fever. Per nursing note-noted to have red dots on chest; multiples found throughout trunk Severe sepsis (temp 100.8, HR 101, WBC 3.6, lactic acid 4.3) secondary to pneumonia Selected Entries 05/24/18 05/24/18 05/24/18 01:02 06:57 09:20 Breakfast Lunch Temperature 99.7 F H 102.0 F H 102.0 F H 05/24/18 05/24/18 05/24/18 12:00 16:05 22:16 Breakfast Lunch Temperature 98.8 F 98.7 F 101.9 F H 05/25/18 05/25/18 05/25/18 01:15 04:31 05:00 Breakfast Lunch Temperature 98.5 F 98.7 F 98.4 F 05/25/18 05/25/18 05/25/18 09:00 12:07 12:30 Breakfast 50% Lunch Temperature 99.2 F 102.1 F H 05/25/18 05/25/18 05/26/18 14:34 22:00 02:30 Breakfast Lunch 100% Temperature 100.7 F H 100.8 F H 102.2 F H 05/26/18 05/26/18 05/26/18 06:00 10:00 11:47 Breakfast 0 Lunch Temperature 99.4 F 99 F Laboratory Tests 05/25/18 07:00 WBC 2.9 L On reg diet/thin liquid at [facility]. Pt from home. History Source: Medical Record Limitations to Obtaining History: Clinical Condition - Smoking History Smoking history: Unknown if ever smoked Have you smoked in the past 12 months: No - Alcohol/Substance Use Hx Alcohol Use: No History - Admission Reason For Visit: PNEUMONIA - Diagnostics X-ray: Report Reviewed CT Scan: Report Reviewed - General Mental Status: Confused, Flat Affect Attention: Severe Impairment Ability to Follow Directions: Poor Head/Neck Control: Needs Assist - Hearing Hearing: Normal Hearing Aide: No With Patient: No Speech Evaluation - Communication Primary Language: [place] Communication: Yes: Non-Communicable Oral Expression Ability: Yes: Non-Verbal (vocal mmmm) - Speech Characteristics Voice Phonatory-based Quality: Yes: Normal - Swallow Evaluation/Bedside Assessment Current Nutritional Intake: Regular, Thin Liquids Jaw Position: Closed at Rest (tightly. unable/unwilling to relax/open lips/mouth ) Laryngeal Movement: Unable to Palpate Rate of Intake: Slow/Holding (severe oral holding suspected) Recommendations - Speech Evaluation, Impression/Plan Impression: Pt reportedly ate reg food yesterday without difficulty with occasional verbalizations. Today, pt has lips sealed tightly, unable to open mouth, stating "mmmm" not opening mouth to speak. I suspect pt has meds/liquid in hismouth with severe oral holding secondary to dementia/parkinsons with exacerbation secondary to infection. Red spots on torso. - Dysphagia Impressions/Plan Swallowing Skills: Impaired Dysphagia Impressions: Risk of Aspiration *Silent aspiration: cannot be R/O at bedside Recommendations: Other (Try to suction mouth to determine if there is severe oral holding. Often, once suctioned, pt can relax lips and open mouth. Reviewed withy nursing. To follow regarding swallowing assessment)
--- NOTE | 2018-05-26 14:42 | PN ---
Progress Note, Physician History of Present Illness: patient with dementia refusing to open his eyes now refusing to eat patient has been spiking fevers yesterday - Current Medication List Current Medications: Active Medications Acetaminophen (Tylenol -) 650 mg PO Q4H PRN PRN Reason: FEVER Aspirin (Asa -) 81 mg PO DAILY [facility] Last Admin: 05/26/18 10:47 Dose: 81 mg Atorvastatin Calcium (Lipitor -) 10 mg PO HS [facility] Last Admin: 05/25/18 21:46 Dose: 10 mg Ciprofloxacin (Ciloxan 0.3% Eye Drops -) 1 drop OU Q4HWA [facility] Last Admin: 05/26/18 10:53 Dose: 1 drop Heparin Sodium (Porcine) (Heparin -) 5,000 unit SQ TID [facility] Last Admin: 05/26/18 06:44 Dose: 5,000 unit Potassium Chloride/Dextrose/Sod Cl (D5-1/2ns+20 Meq Kcl -) 20 meq in 1,000 mls @ 100 mls/hr IV ASDIR [facility] Last Admin: 05/25/18 23:19 Dose: 100 mls/hr Piperacillin Sod/Tazobactam (Sod 3.375 gm/ Dextrose) 50 mls @ 100 mls/hr IVPB Q8H-IV [facility]; Protocol Last Admin: 05/26/18 10:47 Dose: 100 mls/hr Insulin Aspart (Novolog Vial Sliding Scale -) 1 vial SQ ACHS [facility]; Protocol Last Admin: 05/26/18 06:44 Dose: 2 units Lisinopril (Prinivil) 10 mg PO DAILY [facility] Last Admin: 05/26/18 10:47 Dose: 10 mg Memantine (Namenda -) 10 mg PO DAILY [facility] Last Admin: 05/26/18 10:47 Dose: 10 mg Non-Formulary Medication (Donepezil Hcl [Donepezil Hcl]) 23 mg PO HS [facility] Polyethylene Glycol (Miralax (For Daily Use) -) 17 gm PO BID [facility] Last Admin: 05/26/18 10:47 Dose: 17 grams Senna (Senna -) 2 tab PO HS PRN PRN Reason: CONSTIPATION - Objective Vital Signs: Vital Signs Temperature 98.6 F 05/26/18 14:13 Pulse Rate 113 H 05/26/18 14:13 Respiratory Rate 05/26/18 14:13 Blood Pressure 140/76 05/26/18 14:13 O2 Sat by Pulse Oximetry (%) 95 05/25/18 21:00 Constitutional: Yes: No Distress, Calm Cardiovascular: Yes: Regular Rate and Rhythm Respiratory: Yes: Regular, CTA Bilaterally Gastrointestinal: Yes: Normal Bowel Sounds, Soft Musculoskeletal: Yes: WNL Extremities: Yes: WNL Neurological: Yes: Other (refusing to open eyes) Psychiatric: Yes: Other Labs: CBC, BMP 05/25/18 07:00 05/25/18 07:00 INR, PTT INR 1.07 (0.83-1.09) 05/23/18 16:04 - ....Imaging Chest X-ray: Report Reviewed, Image Reviewed Assessment/Plan patients findings noted elevation of diaphragm noted Problem List - Problems (1) Fecal impaction Code(s): K56.41 - FECAL IMPACTION (2) Dementia Code(s): F03.90 - UNSPECIFIED DEMENTIA WITHOUT BEHAVIORAL DISTURBANCE (3) Hypertension Code(s): I10 - ESSENTIAL (PRIMARY) HYPERTENSION (4) Pneumonia Code(s): J18.9 - PNEUMONIA, UNSPECIFIED ORGANISM plan all reports noted patient still spiking fevers await for swallow study if patient spiking fever pls cx him might have to repeat imaging studies
[2018-05-26] MEDS: D5-1/2NS+20 MEQ KCL - 20 MEQ/1,000 ML INFUS.BAG IV SCH (16:02)
[2018-05-26] MEDS ORDERED: ACETAMINOPHEN 1000 MG/100 ML VIAL (NON FORMULARY) IVPB ONE ×2 (20:27)
[2018-05-26] MEDS: ATORVASTATIN CA 10 MG TABLET (FP) PO SCH (22:42)
[2018-05-27] MEDS ORDERED: DEXTROSE 5%-WATER - 50 ML IVPB ONE ×2 (02:28→09:46)
[2018-05-27] MEDS ORDERED: PIPERACILLIN/TAZOBACTAM 3.375 GM VIAL IVPB ONE ×2 (02:28→09:46)
[2018-05-27] MEDS: PIPERACILLIN/TAZOB 3.375 GM 3.375 GM in DEXTROSE 5%-WATER - 50 ML IVPB SCH ×2 (02:40→09:55)
[2018-05-27] MEDS: D5-1/2NS+20 MEQ KCL - 20 MEQ/1,000 ML INFUS.BAG IV SCH ×3 (06:30→19:45)
[2018-05-27] MEDS: HEPARIN NA (PORCINE) 5,000 UNITS/ML 1ML VIAL SQ SCH ×3 (06:32→21:43)
[2018-05-27] MEDS: CIPROFLOXACIN HCL 0.3% OPHTH 2.5ML BOTTLE OU SCH ×5 (06:32→21:42)
[2018-05-27] MEDS: INSULIN SLIDING SCALE (NOVOLOG) 1 VIAL SQ SCH ×4 (06:35→21:43)
[2018-05-27 07:37] LABS: HEMATOCRIT 33.1 % (35.4-49); HEMOGLOBIN 10.9 GM/dL (11.7-16.9); LYMPH % 22.5 % (8-40); MCH 28.8 pg (25.7-33.7); MCHC 33.1 g/dl (32.0-35.9); MEAN PLT VOLUME 8.9 fl (7.5-11.1); MONO % 10.7 % (3.8-10.2); NEUT % 63.8 % (42.8-82.8); PLATELET COUNT 220 K/MM3 (134-434); WHITE BLOOD COUNT 7.7 K/mm3 (4.0-10.0)
[2018-05-27 08:05] LABS: ALBUMIN 2.8 g/dl (3.4-5.0); ALK PHOS 114 U/L (45-117); ANION GAP 4 MMOL/L (8-16); BLOOD UREA NITROGEN 13 mg/dL (7-18); CALCIUM 7.8 mg/dL (8.5-10.1); CHLORIDE 105 mmol/L (98-107); CO2 28 mmol/L (21-32); CREATININE 0.8 mg/dL (0.55-1.3); GLUCOSE,RANDOM 171 mg/dL (74-106); SGOT/AST 90 U/L (15-37); SGPT/ALT 65 U/L (13-61); SODIUM 137 mmol/L (136-145); TOT PROT 6.5 g/dl (6.4-8.2)
[2018-05-27] MEDS: POLYETHYLENE GLYCOL 3350 119 GM BTL PO SCH ×2 (10:00→21:36)
[2018-05-27] MEDS ORDERED: SODIUM PHOSPHATE/NA BIPHOS 133 ML ENEMA PR ONE (11:46)
--- NOTE | 2018-05-27 11:48 | PN ---
Progress Note (short form) - Note Progress Note: had fever yesterday No fever now Pt is more awake He ate about 50% per RN No distress' Vital Signs - 24 hr 05/26/18 05/26/18 05/26/18 14:13 18:00 21:00 Temperature 98.6 F 101.2 F H Pulse Rate 113 H 108 H Respiratory 19 19 20 Rate Blood Pressure 140/76 162/78 O2 Sat by Pulse 95 Oximetry (%) 05/26/18 05/26/18 05/27/18 22:00 23:00 02:00 Temperature 99.2 F 98.7 F Pulse Rate 99 H 81 Respiratory 20 20 Rate Blood Pressure 130/78 117/57 L O2 Sat by Pulse Oximetry (%) 05/27/18 05/27/18 07:00 09:32 Temperature 98.6 F 99.6 F Pulse Rate 90 96 H Respiratory 20 20 Rate Blood Pressure 133/66 184/73 H O2 Sat by Pulse Oximetry (%) Current Medications Generic Name Dose Route Start Last Admin Trade Name Freq PRN Reason Stop Dose Admin Acetaminophen 650 mg 05/24/18 07:24 Tylenol - PO Q4H PRN FEVER Aspirin 81 mg 05/24/18 10:00 05/26/18 10:47 Asa - PO 81 mg DAILY ALISSA Administration Ciprofloxacin 1 drop 05/24/18 06:00 05/27/18 09:59 Ciloxan 0.3% Eye Drops - OU 1 drop Q4HWA ALSISA Administration Heparin Sodium (Porcine) 5,000 unit 05/24/18 06:00 05/27/18 06:32 Heparin - SQ 5,000 unit TID ALISSA Administration Potassium Chloride/Dextrose/Sod Cl 20 meq in 1,000 mls @ 100 mls/hr 05/24/18 14:00 05/27/18 06:30 D5-1/2ns+20 Meq Kcl - IV 100 mls/hr ASDIR ALISSA Administration Piperacillin Sod/Tazobactam 50 mls @ 100 mls/hr 05/24/18 18:00 05/27/18 09:55 Sod 3.375 gm/ Dextrose IVPB 100 mls/hr Q8H-IV ALISSA Administration Protocol Insulin Aspart 1 vial 05/24/18 07:00 05/27/18 06:35 Novolog Vial Sliding Scale - SQ 2 units ACHS ALISSA Administration Protocol Lisinopril 10 mg 05/24/18 10:00 05/26/18 10:47 Prinivil PO 10 mg DAILY ALISSA Administration Memantine 10 mg 05/24/18 10:00 05/26/18 10:47 Namenda - PO 10 mg DAILY ALISSA Administration Non-Formulary Medication 23 mg 05/24/18 22:00 Donepezil Hcl [Donepezil Hcl] PO HS ALISSA Polyethylene Glycol 17 gm 05/25/18 22:00 05/26/18 22:42 Miralax (For Daily Use) - PO Not Given BID ALISSA Senna 2 tab 05/26/18 11:19 Senna - PO HS PRN CONSTIPATION Sodium Phosphate 133 ml 05/27/18 11:46 Fleet Adult Rectal Enema - MI 05/27/18 11:47 ONCE ONE Laboratory Results - last 24 hr 05/26/18 05/26/18 05/27/18 13:08 22:46 06:20 WBC 7.7 RBC 3.80 L Hgb 10.9 L Hct 33.1 L MCV 87.0 MCH 28.8 MCHC 33.1 RDW 13.0 Plt Count 220 D MPV 8.9 Absolute Neuts (auto) 4.9 Neutrophils % 63.8 Lymphocytes % 22.5 Monocytes % 10.7 H Eosinophils % 2.0 D Basophils % 1.0 Nucleated RBC % 0 Sodium Potassium Chloride Carbon Dioxide Anion Gap BUN Creatinine Creat Clearance w eGFR POC Glucometer 211 160 Random Glucose Calcium Total Bilirubin AST ALT Alkaline Phosphatase Total Protein Albumin 05/27/18 05/27/18 05/27/18 06:20 06:34 11:17 WBC RBC Hgb Hct MCV MCH MCHC RDW Plt Count MPV Absolute Neuts (auto) Neutrophils % Lymphocytes % Monocytes % Eosinophils % Basophils % Nucleated RBC % Sodium 137 Potassium 4.0 Chloride 105 Carbon Dioxide 28 Anion Gap 4 L BUN 13 Creatinine 0.8 Creat Clearance w eGFR > 60 POC Glucometer 161 204 Random Glucose 171 H Calcium 7.8 L Total Bilirubin 1.0 AST 90 H ALT 65 H Alkaline Phosphatase 114 Total Protein 6.5 Albumin 2.8 L S1 S2 RRR Lungs decreased breath sounds Abd-soft, NT, ND no edema PLAN repeat blood cultures spoke with son in detail -- pt used to eat but he does refuse sometimes He used to particpate in PT on iv antibiotics iv fluids check sono abd for elevated LFT dc Lipitor BP is better controlled Problem List - Problems (1) Fecal impaction Code(s): K56.41 - FECAL IMPACTION (2) Dementia Code(s): F03.90 - UNSPECIFIED DEMENTIA WITHOUT BEHAVIORAL DISTURBANCE (3) Hypertension Code(s): I10 - ESSENTIAL (PRIMARY) HYPERTENSION (4) Pneumonia Code(s): J18.9 - PNEUMONIA, UNSPECIFIED ORGANISM
[2018-05-27] MEDS: MEMANTINE HCL 10 MG TABLET (FP) PO SCH (11:59)
[2018-05-27] MEDS: ASPIRIN 81 MG CHEWABLE TABLETS PO SCH (11:59)
[2018-05-27] MEDS: LISINOPRIL 10 MG TABLET (FP) PO SCH (11:59)
--- NOTE | 2018-05-27 12:34 | PN ---
Progress Note, DENTAL ASSISTING INSTRUCTOR - Note Progress Note: Selected Entries 05/23/18 05/23/18 05/23/18 15:11 15:40 21:44 Breakfast Lunch Supper Temperature 99.3 F 100.8 F H 98.0 F 05/24/18 05/24/18 05/24/18 01:02 06:57 09:20 Breakfast Lunch Supper Temperature 99.7 F H 102.0 F H 102.0 F H 05/24/18 05/24/18 05/24/18 12:00 16:05 22:16 Breakfast Lunch Supper Temperature 98.8 F 98.7 F 101.9 F H 05/25/18 05/25/18 05/25/18 01:15 04:31 05:00 Breakfast Lunch Supper Temperature 98.5 F 98.7 F 98.4 F 05/25/18 05/25/18 05/25/18 09:00 12:07 12:30 Breakfast 50% Lunch Supper Temperature 99.2 F 102.1 F H 05/25/18 05/25/18 05/26/18 14:34 22:00 02:30 Breakfast Lunch 100% Supper Temperature 100.7 F H 100.8 F H 102.2 F H 05/26/18 05/26/18 05/26/18 06:00 10:00 11:47 Breakfast 0 Lunch Supper Temperature 99.4 F 99 F 05/26/18 05/26/18 05/26/18 14:13 18:00 18:40 Breakfast Lunch Supper 0 Temperature 98.6 F 101.2 F H 05/26/18 05/27/18 05/27/18 23:00 02:00 07:00 Breakfast Lunch Supper Temperature 99.2 F 98.7 F 98.6 F 05/27/18 05/27/18 09:32 10:35 Breakfast 50% Lunch Supper Temperature 99.6 F Laboratory Tests 05/27/18 06:20 WBC 7.7 Reported to be accepting food more. Had hot cereal today. Lunch held, pending U/ S.
--- NOTE | 2018-05-27 16:49 | PN ---
Progress Note, Physician History of Present Illness: patient stable low grade fever has developed blotchy patches all over the abdomen and lower ext opening eyes today ate food - Current Medication List Current Medications: Active Medications Acetaminophen (Tylenol -) 650 mg PO Q4H PRN PRN Reason: FEVER Aspirin (Asa -) 81 mg PO DAILY [facility] Last Admin: 05/27/18 11:59 Dose: 81 mg Ciprofloxacin (Ciloxan 0.3% Eye Drops -) 1 drop OU Q4HWA [facility] Last Admin: 05/27/18 13:19 Dose: 1 drop Heparin Sodium (Porcine) (Heparin -) 5,000 unit SQ TID [facility] Last Admin: 05/27/18 14:40 Dose: 5,000 unit Potassium Chloride/Dextrose/Sod Cl (D5-1/2ns+20 Meq Kcl -) 20 meq in 1,000 mls @ 100 mls/hr IV ASDIR [facility] Last Admin: 05/27/18 14:43 Dose: Not Given Insulin Aspart (Novolog Vial Sliding Scale -) 1 vial SQ ACHS [facility]; Protocol Last Admin: 05/27/18 12:00 Dose: Not Given Lisinopril (Prinivil) 10 mg PO DAILY [facility] Last Admin: 05/27/18 11:59 Dose: 10 mg Memantine (Namenda -) 10 mg PO DAILY [facility] Last Admin: 05/27/18 11:59 Dose: 10 mg Non-Formulary Medication (Donepezil Hcl [Donepezil Hcl]) 0 mg PO [facility] Polyethylene Glycol (Miralax (For Daily Use) -) 17 gm PO BID [facility] Last Admin: 05/27/18 10:00 Dose: Not Given Senna (Senna -) 2 tab PO HS PRN PRN Reason: CONSTIPATION - Objective Vital Signs: Vital Signs Temperature 100.1 F H 05/27/18 15:14 Pulse Rate 99 H 05/27/18 13:36 Respiratory Rate 18 05/27/18 13:36 Blood Pressure 113/59 L 05/27/18 13:36 O2 Sat by Pulse Oximetry (%) 94 L 05/27/18 09:00 Constitutional: Yes: No Distress, Calm Cardiovascular: Yes: S1, S2 Respiratory: Yes: Regular, CTA Bilaterally Gastrointestinal: Yes: Normal Bowel Sounds, Soft Musculoskeletal: Yes: WNL Extremities: Yes: Other (rash) Integumentary: Yes: Rash Neurological: Yes: Alert, Other Psychiatric: Yes: Alert, Other Labs: CBC, BMP 05/27/18 06:20 05/27/18 06:20 INR, PTT INR 1.07 (0.83-1.09) 05/23/18 16:04 Assessment/Plan patients findings noted elevation of diaphragm noted Problem List - Problems (1) Fecal impaction Code(s): K56.41 - FECAL IMPACTION (2) Dementia Code(s): F03.90 - UNSPECIFIED DEMENTIA WITHOUT BEHAVIORAL DISTURBANCE (3) Hypertension Code(s): I10 - ESSENTIAL (PRIMARY) HYPERTENSION (4) Pneumonia Code(s): J18.9 - PNEUMONIA, UNSPECIFIED ORGANISM 5 rash patient has developed a rash this does not look like a drug rash i am worried if this is a vasculitis type of rash consider steroids will stop abx fever could be very well be due to the rash
[2018-05-27] MEDS: DONEPEZIL HCL PO SCH (21:42)
[2018-05-28] MEDS: D5-1/2NS+20 MEQ KCL - 20 MEQ/1,000 ML INFUS.BAG IV SCH (05:50)
[2018-05-28] MEDS: INSULIN SLIDING SCALE (NOVOLOG) 1 VIAL SQ SCH ×4 (06:33→21:44)
[2018-05-28] MEDS: CIPROFLOXACIN HCL 0.3% OPHTH 2.5ML BOTTLE OU SCH ×5 (06:33→21:44)
[2018-05-28] MEDS: HEPARIN NA (PORCINE) 5,000 UNITS/ML 1ML VIAL SQ SCH ×3 (06:33→21:42)
[2018-05-28 08:23] LABS: BASO % 0.9 % (0-2.0); EOS % 5.8 % (0-4.5); HEMATOCRIT 30.2 % (35.4-49); HEMOGLOBIN 9.9 GM/dL (11.7-16.9); LYMPH % 29.4 % (8-40); MCH 28.5 pg (25.7-33.7); MEAN CELL VOLUME 86.5 fl (80-96); MEAN PLT VOLUME 8.7 fl (7.5-11.1); MONO % 12.6 % (3.8-10.2); NEUT % 51.3 % (42.8-82.8); PLATELET COUNT 225 K/MM3 (134-434); RBC 3.49 M/mm3 (4.00-5.60); RDW 12.8 % (11.9-15.9); WHITE BLOOD COUNT 5.5 K/mm3 (4.0-10.0)
[2018-05-28] MEDS ORDERED: PT OWN MED DRAWER 7, Y5N ONE ×3 (08:50→18:42)
[2018-05-28 08:52] LABS: ALBUMIN 2.6 g/dl (3.4-5.0); ALK PHOS 100 U/L (45-117); ANION GAP 7 MMOL/L (8-16); BILIRUBIN,TOTAL 0.6 mg/dL (0.2-1); BLOOD UREA NITROGEN 11 mg/dL (7-18); CALCIUM 7.8 mg/dL (8.5-10.1); CHLORIDE 107 mmol/L (98-107); CO2 25 mmol/L (21-32); CREATININE 0.7 mg/dL (0.55-1.3); GLUCOSE,RANDOM 175 mg/dL (74-106); POTASSIUM 3.6 mmol/L (3.5-5.1); SGOT/AST 62 U/L (15-37); SGPT/ALT 75 U/L (13-61); SODIUM 139 mmol/L (136-145); TOT PROT 6.1 g/dl (6.4-8.2)
--- NOTE | 2018-05-28 10:23 | PN ---
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 - Current Medication List Current Medications: Active Medications Acetaminophen (Tylenol -) 650 mg PO Q4H PRN PRN Reason: FEVER Aspirin (Asa -) 81 mg PO DAILY [facility] Last Admin: 05/27/18 11:59 Dose: 81 mg Ciprofloxacin (Ciloxan 0.3% Eye Drops -) 1 drop OU Q4HWA [facility] Last Admin: 05/28/18 06:33 Dose: 1 drop Heparin Sodium (Porcine) (Heparin -) 5,000 unit SQ TID [facility] Last Admin: 05/28/18 06:33 Dose: 5,000 unit Potassium Chloride/Dextrose/Sod Cl (D5-1/2ns+20 Meq Kcl -) 20 meq in 1,000 mls @ 100 mls/hr IV ASDIR [facility] Last Admin: 05/28/18 05:50 Dose: 100 mls/hr Insulin Aspart (Novolog Vial Sliding Scale -) 1 vial SQ ACHS [facility]; Protocol Last Admin: 05/28/18 06:33 Dose: 2 units Lisinopril (Prinivil) 10 mg PO DAILY [facility] Last Admin: 05/27/18 11:59 Dose: 10 mg Memantine (Namenda -) 10 mg PO DAILY [facility] Last Admin: 05/27/18 11:59 Dose: 10 mg Non-Formulary Medication (Donepezil Hcl [Donepezil Hcl]) 0 mg PO HS [facility] Last Admin: 05/27/18 21:42 Dose: 23 mg Polyethylene Glycol (Miralax (For Daily Use) -) 17 gm PO BID [facility] Last Admin: 05/27/18 21:36 Dose: Not Given Senna (Senna -) 2 tab PO HS PRN PRN Reason: CONSTIPATION - Objective Vital Signs: Vital Signs Temperature 98.5 F 05/28/18 06:00 Pulse Rate 89 05/28/18 06:00 Respiratory Rate 18 05/28/18 06:00 Blood Pressure 102/65 05/28/18 06:00 O2 Sat by Pulse Oximetry (%) 94 L 05/27/18 21:00 Constitutional: Yes: No Distress, Calm Cardiovascular: Yes: S1, S2 Respiratory: Yes: Regular, CTA Bilaterally Gastrointestinal: Yes: Normal Bowel Sounds, Soft Musculoskeletal: Yes: WNL Extremities: Yes: WNL Integumentary: Yes: Rash Neurological: Yes: Other Psychiatric: Yes: Other Labs: CBC, BMP 05/28/18 06:20 05/28/18 06:20 INR, PTT INR 1.07 (0.83-1.09) 05/23/18 16:04 Assessment/Plan Problem List - Problems (1) Fecal impaction Code(s): K56.41 - FECAL IMPACTION (2) Dementia Code(s): F03.90 - UNSPECIFIED DEMENTIA WITHOUT BEHAVIORAL DISTURBANCE (3) Hypertension Code(s): I10 - ESSENTIAL (PRIMARY) HYPERTENSION (4) Pneumonia Code(s): J18.9 - PNEUMONIA, UNSPECIFIED ORGANISM 5 rash rash is improving plan will continue to monitor patient stable remaining afebrile nutrition still confused
[2018-05-28] MEDS: POLYETHYLENE GLYCOL 3350 119 GM BTL PO SCH ×2 (10:27→21:43)
[2018-05-28] MEDS: MEMANTINE HCL 10 MG TABLET (FP) PO SCH (10:56)
[2018-05-28] MEDS: LISINOPRIL 10 MG TABLET (FP) PO SCH (10:56)
[2018-05-28] MEDS: ASPIRIN 81 MG CHEWABLE TABLETS PO SCH (10:56)
--- NOTE | 2018-05-28 11:57 | PN ---
Progress Note (short form) - Note Progress Note: pt seen/ examined chart reviewed awake/ comfortable forgetful discussed with Dr. Godwin also afebrile off abx u//s noted-- hepatocellular disease I also added hepatitis profile to today labs Vital Signs Temp 98.2 F 05/28/18 10:00 Pulse 90 05/28/18 10:00 Resp 18 05/28/18 10:00 BP 144/78 05/28/18 10:00 Pulse Ox 94 L 05/27/18 21:00 Intake & Output 05/27/18 05/27/18 05/28/18 11:59 23:59 11:59 Intake Total 1200 1150 1200 Balance 1200 1150 1200 Intake: IV 1200 1100 1200 D5-1/2NS+20 MEQ KCL - 20 1200 1100 1200 meq In 1,000 ml @ 100 mls /hr IV ASDIR [facility] Rx#: [id number] IVPB 50 Other: Voiding Method Incontinent Incontinent Incontinent # Unmeasured Voids Davis 2 Bowel Movement Yes(large) # Bowel Movements 1 Active Medications Acetaminophen (Tylenol -) 650 mg PO Q4H PRN PRN Reason: FEVER Aspirin (Asa -) 81 mg PO DAILY [facility] Last Admin: 05/28/18 10:56 Dose: 81 mg Ciprofloxacin (Ciloxan 0.3% Eye Drops -) 1 drop OU Q4HWA [facility] Last Admin: 05/28/18 10:28 Dose: 1 drop Heparin Sodium (Porcine) (Heparin -) 5,000 unit SQ TID [facility] Last Admin: 05/28/18 06:33 Dose: 5,000 unit Potassium Chloride/Dextrose/Sod Cl (D5-1/2ns+20 Meq Kcl -) 20 meq in 1,000 mls @ 100 mls/hr IV ASDIR [facility] Last Admin: 05/28/18 05:50 Dose: 100 mls/hr Insulin Aspart (Novolog Vial Sliding Scale -) 1 vial SQ ACHS [facility]; Protocol Last Admin: 05/28/18 06:33 Dose: 2 units Lisinopril (Prinivil) 10 mg PO DAILY [facility] Last Admin: 05/28/18 10:56 Dose: 10 mg Memantine (Namenda -) 10 mg PO DAILY [facility] Last Admin: 05/28/18 10:56 Dose: 10 mg Non-Formulary Medication (Donepezil Hcl [Donepezil Hcl]) 0 mg PO HS [facility] Last Admin: 05/27/18 21:42 Dose: 23 mg Polyethylene Glycol (Miralax (For Daily Use) -) 17 gm PO BID [facility] Last Admin: 05/28/18 10:27 Dose: Not Given Senna (Senna -) 2 tab PO HS PRN PRN Reason: CONSTIPATION CBC, BMP 05/28/18 06:20 05/28/18 06:20 CMP Sodium 139 mmol/L (136-145) 05/28/18 06:20 Potassium 3.6 mmol/L (3.5-5.1) 05/28/18 06:20 Chloride 107 mmol/L (98-107) 05/28/18 06:20 Carbon Dioxide 25 mmol/L (21-32) 05/28/18 06:20 Anion Gap 7 MMOL/L (8-16) L 05/28/18 06:20 BUN 11 mg/dL (7-18) 05/28/18 06:20 Creatinine 0.7 mg/dL (0.55-1.3) 05/28/18 06:20 Creat Clearance w eGFR > 60 (>60) 05/28/18 06:20 POC Glucometer 162 UNITS (80-120) 05/28/18 11:00 Random Glucose 175 mg/dL (74-106) H 05/28/18 06:20 Lactic Acid 1.1 mmol/L (0.4-2.0) 05/24/18 05:55 Calcium 7.8 mg/dL (8.5-10.1) L 05/28/18 06:20 Total Bilirubin 0.6 mg/dL (0.2-1) 05/28/18 06:20 AST 62 U/L (15-37) H 05/28/18 06:20 ALT 75 U/L (13-61) H 05/28/18 06:20 Alkaline Phosphatase 100 U/L (45-117) 05/28/18 06:20 Troponin I 0.04 ng/ml (0.00-0.05) 05/23/18 16:04 Total Protein 6.1 g/dl (6.4-8.2) L 05/28/18 06:20 Albumin 2.6 g/dl (3.4-5.0) L 05/28/18 06:20 Physical Exam S1 S2 RRR Lungs decreased breath sounds Abd-soft, non tender . Bs + Ext- no edema PLAN better pt is deconditioned physical therapy off abx Discharge planning -- home vs long term -- son prefers home will follow anticipate d/c tomorrow Problem List - Problems (1) Dementia Code(s): F03.90 - UNSPECIFIED DEMENTIA WITHOUT BEHAVIORAL DISTURBANCE (2) Hypertension Code(s): I10 - ESSENTIAL (PRIMARY) HYPERTENSION (3) Pneumonia Code(s): J18.9 - PNEUMONIA, UNSPECIFIED ORGANISM
--- NOTE | 2018-05-28 12:59 | DS ---
Physical Examination Vital Signs: Vital Signs Temperature 98.2 F 05/28/18 10:00 Pulse Rate 90 05/28/18 10:00 Respiratory Rate 18 05/28/18 10:00 Blood Pressure 144/78 05/28/18 10:00 O2 Sat by Pulse Oximetry (%) 94 L 05/27/18 21:00 Findings/Remarks: comfortable. see today progress note Labs: CBC, BMP 05/28/18 06:20 05/28/18 06:20 Discharge Summary Reason For Visit: PNEUMONIA Current Active Problems Dementia (Acute) Fecal impaction (Acute) Hypertension (Acute) Pneumonia (Acute) Hospital Course: admitted for lethargy/ fever diagnosed with Pneumonia treated with abx-- zosyn i/d followed devolped rash-- better off abx deconditioned stable for d/c to str-- meds reconcilled discussed with nursing staff discussed with son also Condition: Stable - Instructions Referrals: Keke Pena MD [Primary Care Provider] - Disposition: LONGTERM FACILITY - Home Medications Comprehensive Discharge Medication List: Ambulatory Orders Aspirin [Ester Chewable Aspirin] 81 mg PO DAILY 05/23/18 Atorvastatin Ca [Lipitor] 10 mg PO HS 05/23/18 Donepezil HCl 23 mg PO HS 05/23/18 Lisinopril/Hydrochlorothiazide [Lisinopril-Hctz 10-12.5 mg Tab] 1 each PO DAILY 05/23/18 Memantine HCl [Namenda -] 10 mg PO DAILY 05/23/18 Metformin HCl [Glucophage] 500 mg PO BID 05/23/18 Acetaminophen [Tylenol .Regular Strength -] 650 mg PO Q4H PRN tablet 05/28/18 Ciprofloxacin 0.3% Eye Drops [Ciloxan 0.3% Eye Drops -] 1 drop OU Q4HWA 7 Days drops 05/28/18 Heparin - 5,000 unit SQ TID vial 05/28/18 Insulin Sliding Scale [Novolog Vial Sliding Scale -] 1 vial SQ ACHS units 05/28 Lisinopril [Prinivil] 10 mg PO DAILY tablet 05/28/18 Polyethylene Glycol 3350 [Miralax 119 gm Btl -] 17 gm PO BID bottle 05/28/18 Sennosides [Senna -] 2 tab PO HS PRN tablet 05/28/18
[2018-05-28] MEDS: DONEPEZIL HCL PO SCH (21:42)
[2018-05-29 01:12] LABS: HEP.C VIRUS AB <0.1 s/co ratio (0.0-0.9)
[2018-05-29] MEDS: HEPARIN NA (PORCINE) 5,000 UNITS/ML 1ML VIAL SQ SCH ×3 (06:19→22:00)
[2018-05-29] MEDS: CIPROFLOXACIN HCL 0.3% OPHTH 2.5ML BOTTLE OU SCH ×5 (06:19→22:03)
[2018-05-29] MEDS: INSULIN SLIDING SCALE (NOVOLOG) 1 VIAL SQ SCH ×4 (06:20→22:03)
[2018-05-29] MEDS: ASPIRIN 81 MG CHEWABLE TABLETS PO SCH (10:54)
[2018-05-29] MEDS: LISINOPRIL 10 MG TABLET (FP) PO SCH (10:54)
[2018-05-29] MEDS: MEMANTINE HCL 10 MG TABLET (FP) PO SCH (10:54)
[2018-05-29] MEDS: POLYETHYLENE GLYCOL 3350 119 GM BTL PO SCH ×2 (10:56→22:08)
--- NOTE | 2018-05-29 13:12 | PN ---
Progress Note (short form) - Note Progress Note: comfortable afebrile no new issues Vital Signs Temp 98.9 F 05/29/18 06:00 Pulse 91 H 05/29/18 06:00 Resp 20 05/29/18 09:00 BP 146/93 05/29/18 06:00 Pulse Ox 95 05/29/18 09:00 Intake & Output 05/28/18 05/29/18 05/29/18 23:59 11:59 23:59 Intake Total 50 50 Balance 50 50 Intake: Oral 50 50 Other: Voiding Method Incontinent Incontinent # Unmeasured Voids Davis 2 1 Bowel Movement Yes(large) No # Bowel Movements 1 Active Medications Acetaminophen (Tylenol -) 650 mg PO Q4H PRN PRN Reason: FEVER Aspirin (Asa -) 81 mg PO DAILY [facility] Last Admin: 05/29/18 10:54 Dose: 81 mg Ciprofloxacin (Ciloxan 0.3% Eye Drops -) 1 drop OU Q4HWA [facility] Last Admin: 05/29/18 10:55 Dose: 1 drop Heparin Sodium (Porcine) (Heparin -) 5,000 unit SQ TID [facility] Last Admin: 05/29/18 06:19 Dose: 5,000 unit Insulin Aspart (Novolog Vial Sliding Scale -) 1 vial SQ ACHS [facility]; Protocol Last Admin: 05/29/18 12:35 Dose: Not Given Lisinopril (Prinivil) 10 mg PO DAILY [facility] Last Admin: 05/29/18 10:54 Dose: 10 mg Memantine (Namenda -) 10 mg PO DAILY [facility] Last Admin: 05/29/18 10:54 Dose: 10 mg Non-Formulary Medication (Donepezil Hcl [Donepezil Hcl]) 0 mg PO HS [facility] Last Admin: 05/28/18 21:42 Dose: 23 mg Polyethylene Glycol (Miralax (For Daily Use) -) 17 gm PO BID [facility] Last Admin: 05/29/18 10:56 Dose: Not Given Senna (Senna -) 2 tab PO HS PRN PRN Reason: CONSTIPATION CBC, BMP 05/28/18 06:20 05/28/18 06:20 Microbiology 05/26/18 21:40 Blood Culture - Preliminary Blood - Peripheral Venous NO GROWTH OBTAINED AFTER 48 HOURS, INCUBATION TO CONTINUE FOR 3 DAYS. 05/26/18 21:00 Blood Culture - Preliminary Blood - Peripheral Venous NO GROWTH OBTAINED AFTER 48 HOURS, INCUBATION TO CONTINUE FOR 3 DAYS. 05/23/18 16:05 Blood Culture - Final Blood - Peripheral Venous NO GROWTH AFTER 5 DAYS INCUBATION 05/23/18 16:04 Blood Culture - Final Blood - Peripheral Venous NO GROWTH AFTER 5 DAYS INCUBATION Hepatitis - Proflle -ve Physical Exam S1 S2 RRR Lungs decreased breath sounds Abd-soft, non tender . Bs + Ext- no edema neuro - aawake PLAN better pt is deconditioned physical therapy off abx Discharge planning -- in progress . Anticipate later today Problem List - Problems (1) Dementia Code(s): F03.90 - UNSPECIFIED DEMENTIA WITHOUT BEHAVIORAL DISTURBANCE (2) Hypertension Code(s): I10 - ESSENTIAL (PRIMARY) HYPERTENSION (3) Pneumonia Code(s): J18.9 - PNEUMONIA, UNSPECIFIED ORGANISM
--- NOTE | 2018-05-29 14:17 | PN ---
Progress Note, Physician History of Present Illness: Pt seen and examined. Events noted/labs and imaging results reviewed. Pt is alert, afebrile. Has a rash but denies SOB or pruritis. Off antibiotics at this time. No distress noted. - Current Medication List Current Medications: Active Medications Acetaminophen (Tylenol -) 650 mg PO Q4H PRN PRN Reason: FEVER Aspirin (Asa -) 81 mg PO DAILY [facility] Last Admin: 05/29/18 10:54 Dose: 81 mg Ciprofloxacin (Ciloxan 0.3% Eye Drops -) 1 drop OU Q4HWA [facility] Last Admin: 05/29/18 10:55 Dose: 1 drop Heparin Sodium (Porcine) (Heparin -) 5,000 unit SQ TID [facility] Last Admin: 05/29/18 06:19 Dose: 5,000 unit Insulin Aspart (Novolog Vial Sliding Scale -) 1 vial SQ ACHS [facility]; Protocol Last Admin: 05/29/18 12:35 Dose: Not Given Lisinopril (Prinivil) 10 mg PO DAILY [facility] Last Admin: 05/29/18 10:54 Dose: 10 mg Memantine (Namenda -) 10 mg PO DAILY [facility] Last Admin: 05/29/18 10:54 Dose: 10 mg Non-Formulary Medication (Donepezil Hcl [Donepezil Hcl]) 0 mg PO HS [facility] Last Admin: 05/28/18 21:42 Dose: 23 mg Polyethylene Glycol (Miralax (For Daily Use) -) 17 gm PO BID [facility] Last Admin: 05/29/18 10:56 Dose: Not Given Senna (Senna -) 2 tab PO HS PRN PRN Reason: CONSTIPATION - Objective Vital Signs: Vital Signs Temperature 98.3 F 05/29/18 14:12 Pulse Rate 95 H 05/29/18 14:12 Respiratory Rate 16 05/29/18 14:12 Blood Pressure 134/78 05/29/18 14:12 O2 Sat by Pulse Oximetry (%) 95 05/29/18 09:00 Constitutional: Yes: No Distress, Calm Cardiovascular: Yes: Regular Rate and Rhythm Respiratory: Yes: CTA Bilaterally Gastrointestinal: Yes: Normal Bowel Sounds, Soft Integumentary: Yes: Rash Labs: CBC, BMP 05/28/18 06:20 05/28/18 06:20 INR, PTT INR 1.07 (0.83-1.09) 05/23/18 16:04 Problem List - Problems (1) Dementia Code(s): F03.90 - UNSPECIFIED DEMENTIA WITHOUT BEHAVIORAL DISTURBANCE (2) Fecal impaction Code(s): K56.41 - FECAL IMPACTION (3) Hypertension Code(s): I10 - ESSENTIAL (PRIMARY) HYPERTENSION (4) Pneumonia Code(s): J18.9 - PNEUMONIA, UNSPECIFIED ORGANISM Assessment/Plan Rash - ?improving - Pt afebrile, wbc normal -- Blood/urine cultures no growth -- CXR results noted, pt withoiut cough/fever/SOB monitor off antibiotics
[2018-05-29] MEDS: DONEPEZIL HCL PO SCH (22:40)
[2018-05-30] MEDS: HEPARIN NA (PORCINE) 5,000 UNITS/ML 1ML VIAL SQ SCH ×3 (05:27→22:56)
[2018-05-30] MEDS: CIPROFLOXACIN HCL 0.3% OPHTH 2.5ML BOTTLE OU SCH ×5 (05:29→22:57)
[2018-05-30] MEDS: INSULIN SLIDING SCALE (NOVOLOG) 1 VIAL SQ SCH ×4 (06:28→22:56)
--- NOTE | 2018-05-30 10:38 | PN ---
Progress Note (short form) - Note Progress Note: comfortable afebrile no new issues. awaiting discharge to nursing facility Vital Signs Temp 98.1 F 05/30/18 05:31 Pulse 92 H 05/30/18 05:31 Resp 18 05/30/18 05:31 BP 147/98 05/30/18 05:31 Pulse Ox 95 05/29/18 21:00 Intake & Output 05/29/18 05/29/18 05/30/18 11:59 23:59 11:59 Intake Total 50 50 100 Balance 50 50 100 Intake: IVPB 0 Oral 50 50 100 Other: Voiding Method Incontinent Incontinent # Unmeasured Voids Davis 1 2 2 Bowel Movement No large Yes # Bowel Movements 1 Active Medications Acetaminophen (Tylenol -) 650 mg PO Q4H PRN PRN Reason: FEVER Aspirin (Asa -) 81 mg PO DAILY [facility] Last Admin: 05/29/18 10:54 Dose: 81 mg Ciprofloxacin (Ciloxan 0.3% Eye Drops -) 1 drop OU Q4HWA [facility] Last Admin: 05/30/18 05:29 Dose: 1 drop Heparin Sodium (Porcine) (Heparin -) 5,000 unit SQ TID [facility] Last Admin: 05/30/18 05:27 Dose: 5,000 unit Insulin Aspart (Novolog Vial Sliding Scale -) 1 vial SQ [facility]; Protocol Last Admin: 05/30/18 06:28 Dose: Not Given Lisinopril (Prinivil) 10 mg PO DAILY [facility] Last Admin: 05/29/18 10:54 Dose: 10 mg Memantine (Namenda -) 10 mg PO DAILY [facility] Last Admin: 05/29/18 10:54 Dose: 10 mg Non-Formulary Medication (Donepezil Hcl [Donepezil Hcl]) 0 mg PO [facility] Last Admin: 05/29/18 22:40 Dose: Not Given Polyethylene Glycol (Miralax (For Daily Use) -) 17 gm PO BID [facility] Last Admin: 05/29/18 22:08 Dose: Not Given Senna (Senna -) 2 tab PO HS PRN PRN Reason: CONSTIPATION CBC, BMP 05/28/18 06:20 05/28/18 06:20 Microbiology 05/26/18 21:40 Blood Culture - Preliminary Blood - Peripheral Venous NO GROWTH OBTAINED AFTER 48 HOURS, INCUBATION TO CONTINUE FOR 3 DAYS. 05/26/18 21:00 Blood Culture - Preliminary Blood - Peripheral Venous NO GROWTH OBTAINED AFTER 48 HOURS, INCUBATION TO CONTINUE FOR 3 DAYS. 05/23/18 16:05 Blood Culture - Final Blood - Peripheral Venous NO GROWTH AFTER 5 DAYS INCUBATION 05/23/18 16:04 Blood Culture - Final Blood - Peripheral Venous NO GROWTH AFTER 5 DAYS INCUBATION Hepatitis - Proflle -ve Physical Exam S1 S2 RRR Lungs --decreased breath sounds Abd-soft, non tender . bs + Bs + Ext- no edema neuro - awake PLAN stable physical therapy off abx Discharge planning -- Awaiting bed placement Problem List - Problems (1) Dementia Code(s): F03.90 - UNSPECIFIED DEMENTIA WITHOUT BEHAVIORAL DISTURBANCE (2) Hypertension Code(s): I10 - ESSENTIAL (PRIMARY) HYPERTENSION (3) Pneumonia Code(s): J18.9 - PNEUMONIA, UNSPECIFIED ORGANISM
[2018-05-30] MEDS: LISINOPRIL 10 MG TABLET (FP) PO SCH (10:51)
[2018-05-30] MEDS: POLYETHYLENE GLYCOL 3350 119 GM BTL PO SCH ×2 (10:51→22:56)
[2018-05-30] MEDS: MEMANTINE HCL 10 MG TABLET (FP) PO SCH (10:51)
[2018-05-30] MEDS: ASPIRIN 81 MG CHEWABLE TABLETS PO SCH (10:51)
--- NOTE | 2018-05-30 13:58 | PN ---
Progress Note, Physician History of Present Illness: Pt alert, denying sob/cough. Remains afebrile. Rash improving? - Current Medication List Current Medications: Active Medications Acetaminophen (Tylenol -) 650 mg PO Q4H PRN PRN Reason: FEVER Aspirin (Asa -) 81 mg PO DAILY [facility] Last Admin: 05/30/18 10:51 Dose: 81 mg Ciprofloxacin (Ciloxan 0.3% Eye Drops -) 1 drop OU Q4HWA [facility] Last Admin: 05/30/18 10:51 Dose: 1 drop Heparin Sodium (Porcine) (Heparin -) 5,000 unit SQ TID [facility] Last Admin: 05/30/18 05:27 Dose: 5,000 unit Insulin Aspart (Novolog Vial Sliding Scale -) 1 vial SQ ACHS [facility]; Protocol Last Admin: 05/30/18 06:28 Dose: Not Given Lisinopril (Prinivil) 10 mg PO DAILY [facility] Last Admin: 05/30/18 10:51 Dose: 10 mg Memantine (Namenda -) 10 mg PO DAILY [facility] Last Admin: 05/30/18 10:51 Dose: 10 mg Non-Formulary Medication (Donepezil Hcl [Donepezil Hcl]) 0 mg PO HS [facility] Last Admin: 05/29/18 22:40 Dose: Not Given Polyethylene Glycol (Miralax (For Daily Use) -) 17 gm PO BID [facility] Last Admin: 05/30/18 10:51 Dose: Not Given Senna (Senna -) 2 tab PO HS PRN PRN Reason: CONSTIPATION - Objective Vital Signs: Vital Signs Temperature 98.1 F 05/30/18 10:51 Pulse Rate 105 H 05/30/18 11:00 Respiratory Rate 18 05/30/18 10:51 Blood Pressure 125/86 05/30/18 11:00 O2 Sat by Pulse Oximetry (%) 95 05/29/18 21:00 Constitutional: Yes: No Distress, Calm Cardiovascular: Yes: Regular Rate and Rhythm Respiratory: Yes: CTA Bilaterally Gastrointestinal: Yes: Normal Bowel Sounds, Soft Integumentary: Yes: Rash (scattered, less erythema) Neurological: Yes: Alert Labs: INR, PTT INR 1.07 (0.83-1.09) 05/23/18 16:04 Problem List - Problems (1) Dementia Code(s): F03.90 - UNSPECIFIED DEMENTIA WITHOUT BEHAVIORAL DISTURBANCE (2) Fecal impaction Code(s): K56.41 - FECAL IMPACTION (3) Hypertension Code(s): I10 - ESSENTIAL (PRIMARY) HYPERTENSION (4) Pneumonia Code(s): J18.9 - PNEUMONIA, UNSPECIFIED ORGANISM Assessment/Plan Rash - unclear etiology -- CXR with atelectasis, without respiratory distress monitor off antibiotics
[2018-05-30 14:05] LABS: BASO % 1.2 % (0-2.0); EOS % 5.8 % (0-4.5); HEMATOCRIT 33.4 % (35.4-49); HEMOGLOBIN 11.4 GM/dL (11.7-16.9); LYMPH % 27.2 % (8-40); MCH 29.7 pg (25.7-33.7); MCHC 34.2 g/dl (32.0-35.9); MEAN CELL VOLUME 87.1 fl (80-96); MEAN PLT VOLUME 8.4 fl (7.5-11.1); MONO % 9.7 % (3.8-10.2); NEUT % 56.1 % (42.8-82.8); PLATELET COUNT 391 K/MM3 (134-434); RBC 3.84 M/mm3 (4.00-5.60); RDW 13.2 % (11.9-15.9); WHITE BLOOD COUNT 6.5 K/mm3 (4.0-10.0)
[2018-05-30 14:18] LABS: ALBUMIN 2.8 g/dl (3.4-5.0); ALK PHOS 125 U/L (45-117); ANION GAP 5 MMOL/L (8-16); BILIRUBIN,TOTAL 0.3 mg/dL (0.2-1); BLOOD UREA NITROGEN 15 mg/dL (7-18); CHLORIDE 109 mmol/L (98-107); CO2 28 mmol/L (21-32); CREATININE 0.9 mg/dL (0.55-1.3); GLUCOSE,RANDOM 136 mg/dL (74-106); POTASSIUM 3.8 mmol/L (3.5-5.1); SGOT/AST 105 U/L (15-37); SGPT/ALT 118 U/L (13-61); SODIUM 142 mmol/L (136-145); TOT PROT 6.8 g/dl (6.4-8.2)
[2018-05-30] MEDS: DONEPEZIL HCL PO SCH (22:55)
[2018-05-31] MEDS: CIPROFLOXACIN HCL 0.3% OPHTH 2.5ML BOTTLE OU SCH ×3 (06:43→15:21)
[2018-05-31] MEDS: INSULIN SLIDING SCALE (NOVOLOG) 1 VIAL SQ SCH ×2 (06:43→12:25)
[2018-05-31] MEDS: LISINOPRIL 10 MG TABLET (FP) PO SCH (09:52)
[2018-05-31] MEDS: ASPIRIN 81 MG CHEWABLE TABLETS PO SCH (09:52)
[2018-05-31] MEDS: MEMANTINE HCL 10 MG TABLET (FP) PO SCH (09:54)
[2018-05-31] MEDS: POLYETHYLENE GLYCOL 3350 119 GM BTL PO SCH (09:54)
--- NOTE | 2018-05-31 10:33 | EKG ---
Test Reason : Blood Pressure : / mmHG Vent. Rate : 128 BPM Atrial Rate : 128 BPM P-R Int : 112 ms QRS Dur : 070 ms QT Int : 322 ms P-R-T Axes : 000 -15 089 degrees QTc Int : 470 ms SINUS TACHYCARDIA NONSPECIFIC ST AND T WAVE ABNORMALITY ABNORMAL ECG WHEN COMPARED WITH ECG OF 23-MAY-2018 16:21, VENT. RATE HAS INCREASED Confirmed by VANESSA VELAZQUEZ MD ([id number]) on 05/31/2018 10:32:39 AM Referred By: Lilo HERRERA Confirmed By:VANESSA VELAZQUEZ MD
--- NOTE | 2018-05-31 10:48 | PN ---
Progress Note, Physician History of Present Illness: patient doing well no new issues awake and alert talking looks like patient is back to his baseline - Current Medication List Current Medications: Active Medications Acetaminophen (Tylenol -) 650 mg PO Q4H PRN PRN Reason: FEVER Aspirin (Asa -) 81 mg PO DAILY [facility] Last Admin: 05/31/18 09:52 Dose: 81 mg Ciprofloxacin (Ciloxan 0.3% Eye Drops -) 1 drop OU Q4HWA [facility] Last Admin: 05/31/18 09:54 Dose: 1 drop Insulin Aspart (Novolog Vial Sliding Scale -) 1 vial SQ ACHS [facility]; Protocol Last Admin: 05/31/18 06:43 Dose: Not Given Lisinopril (Prinivil) 10 mg PO DAILY [facility] Last Admin: 05/31/18 09:52 Dose: 10 mg Memantine (Namenda -) 10 mg PO DAILY [facility] Last Admin: 05/31/18 09:54 Dose: 10 mg Non-Formulary Medication (Donepezil Hcl [Donepezil Hcl]) 0 mg PO HS [facility] Last Admin: 05/30/18 22:55 Dose: 23 mg Polyethylene Glycol (Miralax (For Daily Use) -) 17 gm PO BID [facility] Last Admin: 05/31/18 09:54 Dose: Not Given Senna (Senna -) 2 tab PO HS PRN PRN Reason: CONSTIPATION - Objective Vital Signs: Vital Signs Temperature 98 F 05/31/18 10:03 Pulse Rate 98 H 05/31/18 10:03 Respiratory Rate 18 05/31/18 10:03 Blood Pressure 133/75 05/31/18 10:03 O2 Sat by Pulse Oximetry (%) 95 05/31/18 09:00 Constitutional: Yes: No Distress, Calm Cardiovascular: Yes: Regular Rate and Rhythm Respiratory: Yes: Regular, CTA Bilaterally Gastrointestinal: Yes: Normal Bowel Sounds, Soft Musculoskeletal: Yes: WNL Extremities: Yes: WNL Integumentary: Yes: Rash (nearly resolved) Neurological: Yes: Alert Psychiatric: Yes: Alert Labs: CBC, BMP 05/30/18 13:35 05/30/18 13:35 INR, PTT INR 1.07 (0.83-1.09) 05/23/18 16:04 Assessment/Plan Problem List - Problems (1) Fecal impaction Code(s): K56.41 - FECAL IMPACTION (2) Dementia Code(s): F03.90 - UNSPECIFIED DEMENTIA WITHOUT BEHAVIORAL DISTURBANCE (3) Hypertension Code(s): I10 - ESSENTIAL (PRIMARY) HYPERTENSION (4) Pneumonia Code(s): J18.9 - PNEUMONIA, UNSPECIFIED ORGANISM 5 rash rash is improving plan continue current mgmt nutrition doing well rest as per the team
[2018-05-31] MEDS ORDERED: METOPROLOL TARTRATE 25 MG TABLET (FP) PO SCH (13:15)
--- NOTE | 2018-05-31 13:19 | PN ---
Progress Note (short form) - Note Progress Note: awake/ comfortable no new issues eating well was tachy yesterday 00 ekg - noted denies cp/sob. Vital Signs Temp 98 F 05/31/18 10:03 Pulse 98 H 05/31/18 10:03 Resp 18 05/31/18 10:03 BP 133/75 05/31/18 10:03 Pulse Ox 95 05/31/18 09:00 Intake & Output 05/30/18 05/31/18 05/31/18 23:59 11:59 23:59 Intake Total 50 Balance 50 Intake: IVPB 50 Other: Voiding Method Incontinent Incontinent # Unmeasured Voids Davis 3 1 Bowel Movement No # Bowel Movements 1 Active Medications Acetaminophen (Tylenol -) 650 mg PO Q4H PRN PRN Reason: FEVER Aspirin (Asa -) 81 mg PO DAILY [facility] Last Admin: 05/31/18 09:52 Dose: 81 mg Ciprofloxacin (Ciloxan 0.3% Eye Drops -) 1 drop OU Q4HWA [facility] Last Admin: 05/31/18 09:54 Dose: 1 drop Insulin Aspart (Novolog Vial Sliding Scale -) 1 vial SQ ACHS [facility]; Protocol Last Admin: 05/31/18 12:25 Dose: Not Given Lisinopril (Prinivil) 10 mg PO DAILY [facility] Last Admin: 05/31/18 09:52 Dose: 10 mg Memantine (Namenda -) 10 mg PO DAILY [facility] Last Admin: 05/31/18 09:54 Dose: 10 mg Metoprolol Tartrate (Lopressor -) 25 mg PO BID [facility] Non-Formulary Medication (Donepezil Hcl [Donepezil Hcl]) 0 mg PO HS [facility] Last Admin: 05/30/18 22:55 Dose: 23 mg Polyethylene Glycol (Miralax (For Daily Use) -) 17 gm PO BID [facility] Last Admin: 05/31/18 09:54 Dose: Not Given Senna (Senna -) 2 tab PO HS PRN PRN Reason: CONSTIPATION CBC, BMP 05/30/18 13:35 05/30/18 13:35 Microbiology 05/26/18 21:40 Blood Culture - Preliminary Blood - Peripheral Venous NO GROWTH OBTAINED AFTER 96 HOURS, INCUBATION TO CONTINUE FOR 1 DAYS. 05/26/18 21:00 Blood Culture - Preliminary Blood - Peripheral Venous NO GROWTH OBTAINED AFTER 96 HOURS, INCUBATION TO CONTINUE FOR 1 DAYS. Physical Exam S1 S2 RRR Lungs --decreased breath sounds Abd-soft, non tender . bs + Bs + Ext- no edema neuro - awake PLAN stable physical therapy off abx Discharge planning -- Awaiting bed placement--Likely today sinus tachy -- restart metoprolol stable for d/c . Discussed with nursing staff Problem List - Problems (1) Dementia Code(s): F03.90 - UNSPECIFIED DEMENTIA WITHOUT BEHAVIORAL DISTURBANCE (2) Hypertension Code(s): I10 - ESSENTIAL (PRIMARY) HYPERTENSION (3) Pneumonia Code(s): J18.9 - PNEUMONIA, UNSPECIFIED ORGANISM
--- NOTE | 2018-05-31 14:13 | PN ---
Progress Note, [facility] - Note Progress Note: Selected Entries 05/30/18 05/31/18 05/31/18 14:24 06:00 10:03 Breakfast 75% Lunch 50% Temperature 98.0 F 98 F 05/31/18 11:27 Breakfast 100% Lunch Temperature Laboratory Tests 05/30/18 13:35 WBC 6.5 Verbal, accepting and tolerating diet.
[2018-05-31 15:30] VITALS: BP 135/62; PULSE 94; TEMP 97.4
== END 2018-05-31 15:49 | DRG 871 ==
LOC: JER 15:08 → JERBED 21:22 → J5S 05-25 03:54
PROVIDERS: ADMIT Internal Medicine; ATTEND Internal Medicine
DX: A41.9 Sepsis, unspecified organism (principal); J18.9 Pneumonia, unspecified organism; J98.11 Atelectasis; G20 Parkinson's disease; F02.80 Dementia in other diseases classified elsewhere, unspecified severity, without behavioral disturbance, psychotic disturbance, mood disturbance, and anxiety; R50.9 Fever, unspecified; R00.0 Tachycardia, unspecified; E78.5 Hyperlipidemia, unspecified; K56.41 Fecal impaction; M47.892 Other spondylosis, cervical region; I12.9 Hypertensive chronic kidney disease with stage 1 through stage 4 chronic kidney disease, or unspecified chronic kidney disease; E11.22 Type 2 diabetes mellitus with diabetic chronic kidney disease; N18.3 Chronic kidney disease, stage 3 (moderate)
CPT/HCPCS: 36415; 70450-TC; 71045-TC-FY; 71260-TC; 72125-TC; 74177-TC; 76705-TC; 80048; 80053; 80074; 81003; 81015; 82550; 82803; 82962; 83605; 84484; 85025; 85610; 85730; 87040; 87086; 87804; 93005; 93010; 97116-GP; 97162-GP; 99285-25; J0131; J1644; J7030

== ENCOUNTER 2021-09-13 16:07 | Inpatient (IN) | payer OTHER ==
[2021-09-13 16:34] VITALS: BMI 23.6
[2021-09-13] MEDS ORDERED: ACETAMINOPHEN 1000 MG/100 ML BAG IVPB ONE (17:05)
[2021-09-13] MEDS ORDERED: ACETAMINOPHEN INJECTION 100 ML IVPB ONE (17:08)
[2021-09-13 18:25] LABS: BASO % 0.5 % (0-2.0); EOS % 1.7 % (0-4.5); HEMATOCRIT 30.8 % (35.4-49); HEMOGLOBIN 9.9 GM/dL (11.7-16.9); LYMPH % 7.9 % (8-40); MCH 27.5 pg (25.7-33.7); MEAN CELL VOLUME 86.1 fl (80-96); MONO % 9.6 % (3.8-10.2); NEUT % 80.3 % (42.8-82.8); PLATELET COUNT 400 10^3/uL (134-434); RBC 3.58 M/mm3 (4.00-5.60); RDW 12.4 % (11.9-15.9); WHITE BLOOD COUNT 10.1 K/mm3 (4.0-10.0)
[2021-09-13 18:28] LABS: INR 1.11 (0.83-1.09); PROTHROMBIN TIME (PATIENT) 12.8 SEC (9.7-13.0)
[2021-09-13 18:31] LABS: ACTIVATED PTT 33.8 SECONDS (25.2-36.5)
[2021-09-13] MEDS ORDERED: SODIUM CHLORIDE 0.9% 500 ML INFUS.BAG IV ONE ×2 (18:43→19:04)
[2021-09-13 18:45] LABS: ALBUMIN 2.8 g/dl (3.4-5.0); BLOOD UREA NITROGEN 36.5 mg/dL (7-18); CALCIUM 8.8 mg/dL (8.5-10.1)
[2021-09-13 18:48] LABS: CREATININE 0.9 mg/dL (0.55-1.3)
[2021-09-13 18:50] LABS: BILIRUBIN,TOTAL 0.4 mg/dL (0.2-1); TOT PROT 6.2 g/dl (6.4-8.2)
[2021-09-13 18:53] LABS: LACTIC ACID 2.5 mmol/L (0.4-2.0)
[2021-09-13] MEDS ORDERED: PIPERACILLIN/TAZOB 4.5 GM 4.5 GM in DEXTROSE 5%-WATER 100 ML IVPB ONE (22:20)
[2021-09-13] MEDS ORDERED: VANCOMYCIN 1 GM in D5W (PRE-DOCKED) 1,000 MG/250 ML IVPB ONE (22:20)
[2021-09-13] MEDS ORDERED: PIPERACILLIN/TAZOB 4.5 GM 4.5 GM/100 ML BAG IVPB ONE (22:43)
[2021-09-13] MEDS ORDERED: VANCOMYCIN 1 GRAM (PRE-DOCKED) 1,000 MG/250 ML BAG IVPB ONE (23:06)
[2021-09-14] MEDS ORDERED: METOPROLOL TARTRATE 25 MG TABLET (FP) PO ONE (06:27)
[2021-09-14 08:37] LABS: BASO % 0.9 % (0-2.0); EOS % 3.8 % (0-4.5); HEMATOCRIT 27.6 % (35.4-49); LYMPH % 11.3 % (8-40); MCHC 32.7 g/dl (32.0-35.9); MEAN CELL VOLUME 85.7 fl (80-96); MEAN PLT VOLUME 7.9 fl (7.5-11.1); MONO % 8.1 % (3.8-10.2); NEUT % 75.9 % (42.8-82.8); PLATELET COUNT 362 10^3/uL (134-434); RBC 3.22 M/mm3 (4.00-5.60); RDW 12.1 % (11.9-15.9); WHITE BLOOD COUNT 7.4 K/mm3 (4.0-10.0)
[2021-09-14 08:49] LABS: CALCIUM 8.5 mg/dL (8.5-10.1)
[2021-09-14 08:50] LABS: ALBUMIN 2.6 g/dl (3.4-5.0); BLOOD UREA NITROGEN 24.5 mg/dL (7-18)
[2021-09-14 08:53] LABS: CREATININE 0.8 mg/dL (0.55-1.3)
[2021-09-14 08:54] LABS: BILIRUBIN,TOTAL 0.7 mg/dL (0.2-1)
[2021-09-14] MEDS ORDERED: SENNOSIDES 8.6MG TABLET (FP) PO PRN (09:51)
[2021-09-14] MEDS ORDERED: ACETAMINOPHEN 325 MG TABLET (FP) PO PRN (09:51)
[2021-09-14] MEDS ORDERED: HEPARIN NA (PORCINE) 5,000 UNITS/ML 1ML VIAL SQ SCH (10:00)
[2021-09-14] MEDS ORDERED: PATIENT'S OWN MEDICATION (NON-FORMULARY) (Lisinopril/Hydrochlorothiazide [Lisinopril-Hctz PO SCH (10:00)
[2021-09-14] MEDS: ASPIRIN 81 MG CHEWABLE TABLETS PO SCH (10:51)
[2021-09-14] MEDS: HYDROCHLOROTHIAZIDE 12.5 MG CAPSULE (FP) PO SCH (10:51)
[2021-09-14] MEDS: METOPROLOL TARTRATE 25 MG TABLET (FP) PO SCH ×2 (10:51→22:11)
[2021-09-14] MEDS: metFORMIN HCL 500 MG TABLET (FP) PO SCH ×2 (10:51→17:24)
[2021-09-14] MEDS: LISINOPRIL 10 MG TABLET PO SCH (10:52)
[2021-09-14] MEDS: POLYETHYLENE GLYCOL (HEALTHYLAX) 3350 17 GM PACKET PO SCH ×2 (10:52→22:10)
[2021-09-14] MEDS: CIPROFLOXACIN HCL 0.3% OPHTH 2.5ML BOTTLE OU SCH ×2 (11:18→13:15)
[2021-09-14] MEDS: MEMANTINE HCL 10 MG TABLET (FP) PO SCH ×2 (11:18→22:10)
[2021-09-14] MEDS: HEPARIN NA (PORCINE) 5,000 UNITS/ML 1ML VIAL SQ SCH ×2 (13:32→22:11)
[2021-09-14] MEDS: DONEPEZIL HCL 10 MG TABLET (FP) PO SCH (22:11)
[2021-09-14] MEDS: ATORVASTATIN CA 10 MG TABLET (FP) PO SCH (22:11)
[2021-09-15] MEDS: HEPARIN NA (PORCINE) 5,000 UNITS/ML 1ML VIAL SQ SCH ×3 (06:15→21:37)
[2021-09-15] MEDS: metFORMIN HCL 500 MG TABLET (FP) PO SCH (07:10)
[2021-09-15 08:39] LABS: BASO % 1.1 % (0-2.0); EOS % 4.4 % (0-4.5); HEMATOCRIT 29.8 % (35.4-49); HEMOGLOBIN 9.6 GM/dL (11.7-16.9); LYMPH % 16.5 % (8-40); MCH 27.7 pg (25.7-33.7); MCHC 32.4 g/dl (32.0-35.9); MEAN CELL VOLUME 85.5 fl (80-96); PLATELET COUNT 396 10^3/uL (134-434); RBC 3.48 M/mm3 (4.00-5.60); RDW 12.3 % (11.9-15.9); WHITE BLOOD COUNT 7.2 K/mm3 (4.0-10.0)
[2021-09-15] MEDS: LISINOPRIL 10 MG TABLET PO SCH (09:27)
[2021-09-15] MEDS: HYDROCHLOROTHIAZIDE 12.5 MG CAPSULE (FP) PO SCH (09:27)
[2021-09-15] MEDS: ASPIRIN 81 MG CHEWABLE TABLETS PO SCH (09:27)
[2021-09-15] MEDS: POLYETHYLENE GLYCOL (HEALTHYLAX) 3350 17 GM PACKET PO SCH ×2 (09:27→21:37)
[2021-09-15] MEDS: METOPROLOL TARTRATE 25 MG TABLET (FP) PO SCH (09:28)
[2021-09-15] MEDS: MEMANTINE HCL 10 MG TABLET (FP) PO SCH ×2 (09:30→21:37)
[2021-09-15 09:59] LABS: ALBUMIN 2.8 g/dl (3.4-5.0); BLOOD UREA NITROGEN 19.9 mg/dL (7-18)
[2021-09-15 10:00] LABS: CALCIUM 8.9 mg/dL (8.5-10.1)
[2021-09-15 10:01] LABS: CREATININE 0.8 mg/dL (0.55-1.3)
[2021-09-15 10:04] LABS: BILIRUBIN,TOTAL 0.6 mg/dL (0.2-1); TOT PROT 6.4 g/dl (6.4-8.2)
[2021-09-15] MEDS: AMINO ACIDS/PROTEIN HYDROLYS 30 ML LIQUID.PKT PO SCH (16:30)
[2021-09-15] MEDS: DONEPEZIL HCL 10 MG TABLET (FP) PO SCH (21:37)
[2021-09-15] MEDS: ATORVASTATIN CA 10 MG TABLET (FP) PO SCH (21:37)
[2021-09-16] MEDS: HEPARIN NA (PORCINE) 5,000 UNITS/ML 1ML VIAL SQ SCH ×3 (05:43→22:04)
[2021-09-16] MEDS: ASCORBIC ACID 500 MG TABLET (FP) PO SCH (09:28)
[2021-09-16] MEDS: POLYETHYLENE GLYCOL (HEALTHYLAX) 3350 17 GM PACKET PO SCH ×2 (09:29→22:04)
[2021-09-16] MEDS: AMINO ACIDS/PROTEIN HYDROLYS 30 ML LIQUID.PKT PO SCH ×2 (09:29→16:37)
[2021-09-16] MEDS: MEMANTINE HCL 10 MG TABLET (FP) PO SCH ×2 (09:30→22:03)
[2021-09-16] MEDS: ASPIRIN 81 MG CHEWABLE TABLETS PO SCH (09:30)
[2021-09-16] MEDS: LISINOPRIL 10 MG TABLET PO SCH (12:06)
[2021-09-16] MEDS: HYDROCHLOROTHIAZIDE 12.5 MG CAPSULE (FP) PO SCH (12:06)
[2021-09-16] MEDS ORDERED: ACETAMINOPHEN 325 MG TABLET (FP) PO PRN (20:30)
[2021-09-16] MEDS ORDERED: SENNOSIDES 8.6MG TABLET (FP) PO PRN (20:30)
[2021-09-16] MEDS: ATORVASTATIN CA 10 MG TABLET (FP) PO SCH (22:03)
[2021-09-16] MEDS: DONEPEZIL HCL 10 MG TABLET (FP) PO SCH (22:03)
[2021-09-17] MEDS: HEPARIN NA (PORCINE) 5,000 UNITS/ML 1ML VIAL SQ SCH ×3 (06:30→21:21)
[2021-09-17] MEDS: AMINO ACIDS/PROTEIN HYDROLYS 30 ML LIQUID.PKT PO SCH ×2 (09:00→17:41)
[2021-09-17] MEDS ORDERED: LISINOPRIL 10 MG TABLET PO SCH (10:00)
[2021-09-17] MEDS ORDERED: HYDROCHLOROTHIAZIDE 12.5 MG CAPSULE (FP) PO SCH (10:00)
[2021-09-17] MEDS: ASCORBIC ACID 500 MG TABLET (FP) PO SCH (10:06)
[2021-09-17] MEDS: ASPIRIN 81 MG CHEWABLE TABLETS PO SCH (10:06)
[2021-09-17] MEDS: POLYETHYLENE GLYCOL (HEALTHYLAX) 3350 17 GM PACKET PO SCH ×2 (10:07→21:20)
[2021-09-17] MEDS: MEMANTINE HCL 10 MG TABLET (FP) PO SCH ×2 (10:07→21:22)
[2021-09-17] MEDS: LISINOPRIL 10 MG TABLET PO SCH (14:00)
[2021-09-17] MEDS: DONEPEZIL HCL 10 MG TABLET (FP) PO SCH (21:20)
[2021-09-17] MEDS: HYDROCHLOROTHIAZIDE 12.5 MG CAPSULE (FP) PO SCH (21:20)
[2021-09-17] MEDS: ATORVASTATIN CA 10 MG TABLET (FP) PO SCH (21:22)
[2021-09-18] MEDS: HEPARIN NA (PORCINE) 5,000 UNITS/ML 1ML VIAL SQ SCH ×3 (05:25→21:29)
[2021-09-18 06:52] LABS: BASO % 1.3 % (0-2.0); EOS % 4.8 % (0-4.5); HEMATOCRIT 29.5 % (35.4-49); HEMOGLOBIN 9.6 GM/dL (11.7-16.9); LYMPH % 22.8 % (8-40); MCH 27.9 pg (25.7-33.7); MCHC 32.4 g/dl (32.0-35.9); MEAN CELL VOLUME 86.1 fl (80-96); MEAN PLT VOLUME 7.9 fl (7.5-11.1); MONO % 8.6 % (3.8-10.2); NEUT % 62.5 % (42.8-82.8); PLATELET COUNT 407 10^3/uL (134-434); RBC 3.43 M/mm3 (4.00-5.60); RDW 12.3 % (11.9-15.9); WHITE BLOOD COUNT 6.4 K/mm3 (4.0-10.0)
[2021-09-18 07:13] LABS: ALBUMIN 2.8 g/dl (3.4-5.0); BLOOD UREA NITROGEN 19.7 mg/dL (7-18); CALCIUM 8.9 mg/dL (8.5-10.1)
[2021-09-18 07:15] LABS: CREATININE 0.7 mg/dL (0.55-1.3)
[2021-09-18 07:16] LABS: TOT PROT 6.1 g/dl (6.4-8.2)
[2021-09-18 07:17] LABS: BILIRUBIN,TOTAL 0.4 mg/dL (0.2-1)
[2021-09-18] MEDS ORDERED: ACETAMINOPHEN 1000 MG/100 ML BAG IVPB PRN (10:13)
[2021-09-18] MEDS ORDERED: LORazepam 2 MG/ML SDV VIAL IVPUSH ONE (10:15)
[2021-09-18] MEDS: AMINO ACIDS/PROTEIN HYDROLYS 30 ML LIQUID.PKT PO SCH ×2 (11:16→19:00)
[2021-09-18] MEDS: ASPIRIN 81 MG CHEWABLE TABLETS PO SCH (11:16)
[2021-09-18] MEDS: HYDROCHLOROTHIAZIDE 12.5 MG CAPSULE (FP) PO SCH (11:16)
[2021-09-18] MEDS: POLYETHYLENE GLYCOL (HEALTHYLAX) 3350 17 GM PACKET PO SCH ×2 (11:17→21:28)
[2021-09-18] MEDS: MEMANTINE HCL 10 MG TABLET (FP) PO SCH ×2 (11:17→21:30)
[2021-09-18] MEDS: LISINOPRIL 10 MG TABLET PO SCH (11:17)
[2021-09-18] MEDS: COLLAGENASE CLOSTRIDIUM HIST. 30 GRAMS TUBE TP SCH (11:17)
[2021-09-18] MEDS: ASCORBIC ACID 500 MG TABLET (FP) PO SCH (11:24)
[2021-09-18] MEDS: DONEPEZIL HCL 10 MG TABLET (FP) PO SCH (21:29)
[2021-09-18] MEDS: ATORVASTATIN CA 10 MG TABLET (FP) PO SCH (21:30)
[2021-09-19] MEDS: HEPARIN NA (PORCINE) 5,000 UNITS/ML 1ML VIAL SQ SCH ×3 (05:25→21:24)
[2021-09-19] MEDS: AMINO ACIDS/PROTEIN HYDROLYS 30 ML LIQUID.PKT PO SCH ×2 (08:06→17:18)
[2021-09-19] MEDS ORDERED: LORazepam 2 MG/ML SDV VIAL IVPUSH ONE (10:00)
[2021-09-19] MEDS: MEMANTINE HCL 10 MG TABLET (FP) PO SCH ×2 (10:02→21:24)
[2021-09-19] MEDS: ASPIRIN 81 MG CHEWABLE TABLETS PO SCH (10:02)
[2021-09-19] MEDS: LISINOPRIL 10 MG TABLET PO SCH (10:02)
[2021-09-19] MEDS: HYDROCHLOROTHIAZIDE 12.5 MG CAPSULE (FP) PO SCH (10:02)
[2021-09-19] MEDS: ASCORBIC ACID 500 MG TABLET (FP) PO SCH (10:02)
[2021-09-19] MEDS: POLYETHYLENE GLYCOL (HEALTHYLAX) 3350 17 GM PACKET PO SCH ×2 (10:02→21:24)
[2021-09-19] MEDS: COLLAGENASE CLOSTRIDIUM HIST. 30 GRAMS TUBE TP SCH (10:03)
[2021-09-19] MEDS: ATORVASTATIN CA 10 MG TABLET (FP) PO SCH (21:24)
[2021-09-19] MEDS: DONEPEZIL HCL 10 MG TABLET (FP) PO SCH (21:24)
[2021-09-20] MEDS: HEPARIN NA (PORCINE) 5,000 UNITS/ML 1ML VIAL SQ SCH ×3 (06:34→23:06)
[2021-09-20] MEDS: AMINO ACIDS/PROTEIN HYDROLYS 30 ML LIQUID.PKT PO SCH ×2 (08:13→16:30)
[2021-09-20] MEDS: POLYETHYLENE GLYCOL (HEALTHYLAX) 3350 17 GM PACKET PO SCH ×2 (09:34→23:06)
[2021-09-20] MEDS: ASCORBIC ACID 500 MG TABLET (FP) PO SCH (09:34)
[2021-09-20] MEDS: MEMANTINE HCL 10 MG TABLET (FP) PO SCH ×2 (09:34→23:06)
[2021-09-20] MEDS: HYDROCHLOROTHIAZIDE 12.5 MG CAPSULE (FP) PO SCH (09:34)
[2021-09-20] MEDS: ASPIRIN 81 MG CHEWABLE TABLETS PO SCH (09:34)
[2021-09-20] MEDS: LISINOPRIL 10 MG TABLET PO SCH (09:34)
[2021-09-20] MEDS: COLLAGENASE CLOSTRIDIUM HIST. 30 GRAMS TUBE TP SCH (09:35)
[2021-09-20] MEDS ORDERED: ACETAMINOPHEN 1000 MG/100 ML BAG IVPB PRN (11:55)
[2021-09-20] MEDS ORDERED: SENNOSIDES 8.6MG TABLET (FP) PO PRN (18:01)
[2021-09-20] MEDS ORDERED: LORazepam 2 MG/ML SDV VIAL IVPUSH ONE ×2 (18:01→20:30)
[2021-09-20] MEDS: DONEPEZIL HCL 10 MG TABLET (FP) PO SCH (23:06)
[2021-09-20] MEDS: ATORVASTATIN CA 10 MG TABLET (FP) PO SCH (23:06)
[2021-09-21] MEDS: HEPARIN NA (PORCINE) 5,000 UNITS/ML 1ML VIAL SQ SCH ×3 (06:38→22:36)
[2021-09-21] MEDS: LISINOPRIL 10 MG TABLET PO SCH (09:23)
[2021-09-21] MEDS: ASCORBIC ACID 500 MG TABLET (FP) PO SCH (09:23)
[2021-09-21] MEDS: AMINO ACIDS/PROTEIN HYDROLYS 30 ML LIQUID.PKT PO SCH ×2 (09:23→17:37)
[2021-09-21] MEDS: HYDROCHLOROTHIAZIDE 12.5 MG CAPSULE (FP) PO SCH (09:23)
[2021-09-21] MEDS: ASPIRIN 81 MG CHEWABLE TABLETS PO SCH (09:23)
[2021-09-21] MEDS: MEMANTINE HCL 10 MG TABLET (FP) PO SCH ×2 (09:23→22:37)
[2021-09-21] MEDS: POLYETHYLENE GLYCOL (HEALTHYLAX) 3350 17 GM PACKET PO SCH ×2 (09:24→22:36)
[2021-09-21] MEDS: COLLAGENASE CLOSTRIDIUM HIST. 30 GRAMS TUBE TP SCH (09:25)
[2021-09-21] MEDS: DONEPEZIL HCL 10 MG TABLET (FP) PO SCH (22:36)
[2021-09-21] MEDS: ATORVASTATIN CA 10 MG TABLET (FP) PO SCH (22:37)
[2021-09-22] MEDS: HEPARIN NA (PORCINE) 5,000 UNITS/ML 1ML VIAL SQ SCH ×3 (06:42→22:11)
[2021-09-22] MEDS: AMINO ACIDS/PROTEIN HYDROLYS 30 ML LIQUID.PKT PO SCH ×2 (08:44→18:08)
[2021-09-22] MEDS: LISINOPRIL 10 MG TABLET PO SCH (09:34)
[2021-09-22] MEDS: MEMANTINE HCL 10 MG TABLET (FP) PO SCH ×2 (09:34→22:11)
[2021-09-22] MEDS: ASCORBIC ACID 500 MG TABLET (FP) PO SCH (09:34)
[2021-09-22] MEDS: POLYETHYLENE GLYCOL (HEALTHYLAX) 3350 17 GM PACKET PO SCH ×2 (09:34→22:11)
[2021-09-22] MEDS: HYDROCHLOROTHIAZIDE 12.5 MG CAPSULE (FP) PO SCH (09:34)
[2021-09-22] MEDS: ASPIRIN 81 MG CHEWABLE TABLETS PO SCH (09:34)
[2021-09-22] MEDS: COLLAGENASE CLOSTRIDIUM HIST. 30 GRAMS TUBE TP SCH (14:50)
[2021-09-22] MEDS: ATORVASTATIN CA 10 MG TABLET (FP) PO SCH (22:11)
[2021-09-22] MEDS: DONEPEZIL HCL 10 MG TABLET (FP) PO SCH (22:11)
[2021-09-23] MEDS: HEPARIN NA (PORCINE) 5,000 UNITS/ML 1ML VIAL SQ SCH ×3 (06:46→21:40)
[2021-09-23] MEDS ORDERED: LORazepam 2 MG/ML SDV VIAL IM ONE ×2 (11:00→13:21)
[2021-09-23] MEDS: HYDROCHLOROTHIAZIDE 12.5 MG CAPSULE (FP) PO SCH (11:05)
[2021-09-23] MEDS: ASCORBIC ACID 500 MG TABLET (FP) PO SCH (11:05)
[2021-09-23] MEDS: MEMANTINE HCL 10 MG TABLET (FP) PO SCH ×2 (11:05→21:40)
[2021-09-23] MEDS: POLYETHYLENE GLYCOL (HEALTHYLAX) 3350 17 GM PACKET PO SCH ×2 (11:05→21:40)
[2021-09-23] MEDS: AMINO ACIDS/PROTEIN HYDROLYS 30 ML LIQUID.PKT PO SCH ×2 (11:05→16:38)
[2021-09-23] MEDS: COLLAGENASE CLOSTRIDIUM HIST. 30 GRAMS TUBE TP SCH (11:10)
[2021-09-23] MEDS: LISINOPRIL 10 MG TABLET PO SCH (11:10)
[2021-09-23] MEDS: DONEPEZIL HCL 10 MG TABLET (FP) PO SCH (21:40)
[2021-09-23] MEDS: ATORVASTATIN CA 10 MG TABLET (FP) PO SCH (21:40)
[2021-09-24] MEDS: HEPARIN NA (PORCINE) 5,000 UNITS/ML 1ML VIAL SQ SCH ×3 (05:17→21:17)
[2021-09-24] MEDS: AMINO ACIDS/PROTEIN HYDROLYS 30 ML LIQUID.PKT PO SCH ×2 (08:01→16:57)
[2021-09-24] MEDS: ASCORBIC ACID 500 MG TABLET (FP) PO SCH (10:01)
[2021-09-24] MEDS: HYDROCHLOROTHIAZIDE 12.5 MG CAPSULE (FP) PO SCH (10:01)
[2021-09-24] MEDS: COLLAGENASE CLOSTRIDIUM HIST. 30 GRAMS TUBE TP SCH (10:01)
[2021-09-24] MEDS: LISINOPRIL 10 MG TABLET PO SCH (10:01)
[2021-09-24] MEDS: POLYETHYLENE GLYCOL (HEALTHYLAX) 3350 17 GM PACKET PO SCH ×2 (10:02→21:17)
[2021-09-24] MEDS: MEMANTINE HCL 10 MG TABLET (FP) PO SCH ×2 (10:07→21:17)
[2021-09-24 12:56] LABS: BASO % 1.3 % (0-2.0); EOS % 2.6 % (0-4.5); HEMATOCRIT 35.1 % (35.4-49); HEMOGLOBIN 11.1 GM/dL (11.7-16.9); MCH 27.2 pg (25.7-33.7); MCHC 31.5 g/dl (32.0-35.9); MEAN CELL VOLUME 86.3 fl (80-96); MEAN PLT VOLUME 7.6 fl (7.5-11.1); MONO % 9.5 % (3.8-10.2); NEUT % 65.6 % (42.8-82.8); PLATELET COUNT 434 10^3/uL (134-434); RBC 4.07 M/mm3 (4.00-5.60); RDW 13.3 % (11.9-15.9); WHITE BLOOD COUNT 6.1 K/mm3 (4.0-10.0)
[2021-09-24 14:26] LABS: HIV INTERPRETATION NEGATIVE (NEGATIVE)
[2021-09-24] MEDS: DONEPEZIL HCL 10 MG TABLET (FP) PO SCH (21:17)
[2021-09-24] MEDS: ATORVASTATIN CA 10 MG TABLET (FP) PO SCH (21:17)
[2021-09-25] MEDS: HEPARIN NA (PORCINE) 5,000 UNITS/ML 1ML VIAL SQ SCH ×3 (05:41→21:14)
[2021-09-25] MEDS: AMINO ACIDS/PROTEIN HYDROLYS 30 ML LIQUID.PKT PO SCH ×2 (08:43→17:04)
[2021-09-25] MEDS: POLYETHYLENE GLYCOL (HEALTHYLAX) 3350 17 GM PACKET PO SCH ×2 (09:44→21:14)
[2021-09-25] MEDS: LISINOPRIL 10 MG TABLET PO SCH (09:44)
[2021-09-25] MEDS: MEMANTINE HCL 10 MG TABLET (FP) PO SCH ×2 (09:44→21:13)
[2021-09-25] MEDS: HYDROCHLOROTHIAZIDE 12.5 MG CAPSULE (FP) PO SCH (09:44)
[2021-09-25] MEDS: ASCORBIC ACID 500 MG TABLET (FP) PO SCH (09:44)
[2021-09-25] MEDS: COLLAGENASE CLOSTRIDIUM HIST. 30 GRAMS TUBE TP SCH (10:59)
[2021-09-25 11:37] LABS: BLOOD UREA NITROGEN 27.4 mg/dL (7-18)
[2021-09-25 11:41] LABS: ALBUMIN 3.1 g/dl (3.4-5.0)
[2021-09-25 11:44] LABS: CREATININE 0.9 mg/dL (0.55-1.3)
[2021-09-25 11:45] LABS: BILIRUBIN,TOTAL 0.4 mg/dL (0.2-1); TOT PROT 6.8 g/dl (6.4-8.2)
[2021-09-25] MEDS: MULTIVITAMINS (DAILY MVI) TABLET (FP) PO SCH (14:29)
[2021-09-25] MEDS: ZINC SULFATE 220 MG CAPSULE (FP) PO SCH (14:29)
[2021-09-25] MEDS: DONEPEZIL HCL 10 MG TABLET (FP) PO SCH (21:13)
[2021-09-25] MEDS: ATORVASTATIN CA 10 MG TABLET (FP) PO SCH (21:14)
[2021-09-26] MEDS: HEPARIN NA (PORCINE) 5,000 UNITS/ML 1ML VIAL SQ SCH ×3 (06:07→22:04)
[2021-09-26] MEDS: AMINO ACIDS/PROTEIN HYDROLYS 30 ML LIQUID.PKT PO SCH ×2 (08:43→18:16)
[2021-09-26] MEDS: LISINOPRIL 10 MG TABLET PO SCH (09:44)
[2021-09-26] MEDS: MULTIVITAMINS (DAILY MVI) TABLET (FP) PO SCH (09:44)
[2021-09-26] MEDS: POLYETHYLENE GLYCOL (HEALTHYLAX) 3350 17 GM PACKET PO SCH ×2 (09:44→22:05)
[2021-09-26] MEDS: HYDROCHLOROTHIAZIDE 12.5 MG CAPSULE (FP) PO SCH (09:44)
[2021-09-26] MEDS: MEMANTINE HCL 10 MG TABLET (FP) PO SCH ×2 (09:44→22:04)
[2021-09-26] MEDS: ZINC SULFATE 220 MG CAPSULE (FP) PO SCH (09:44)
[2021-09-26] MEDS: ASCORBIC ACID 500 MG TABLET (FP) PO SCH (09:44)
[2021-09-26] MEDS: COLLAGENASE CLOSTRIDIUM HIST. 30 GRAMS TUBE TP SCH (12:25)
[2021-09-26] MEDS: traMADol HCL 50 MG TABLET PO PRN (13:48)
[2021-09-26] MEDS ORDERED: ZINC SULFATE 220 MG CAPSULE (FP) PO SCH (14:00)
[2021-09-26] MEDS: DONEPEZIL HCL 10 MG TABLET (FP) PO SCH (22:04)
[2021-09-26] MEDS: ATORVASTATIN CA 10 MG TABLET (FP) PO SCH (22:04)
[2021-09-27] MEDS: HEPARIN NA (PORCINE) 5,000 UNITS/ML 1ML VIAL SQ SCH ×2 (05:44→13:36)
[2021-09-27] MEDS: AMINO ACIDS/PROTEIN HYDROLYS 30 ML LIQUID.PKT PO SCH ×2 (08:35→17:24)
[2021-09-27] MEDS: ASCORBIC ACID 500 MG TABLET (FP) PO SCH (10:25)
[2021-09-27] MEDS: traMADol HCL 50 MG TABLET PO PRN (10:25)
[2021-09-27] MEDS: HYDROCHLOROTHIAZIDE 12.5 MG CAPSULE (FP) PO SCH (10:25)
[2021-09-27] MEDS: COLLAGENASE CLOSTRIDIUM HIST. 30 GRAMS TUBE TP SCH (10:25)
[2021-09-27] MEDS: POLYETHYLENE GLYCOL (HEALTHYLAX) 3350 17 GM PACKET PO SCH ×2 (10:27→21:42)
[2021-09-27] MEDS: LISINOPRIL 10 MG TABLET PO SCH (10:27)
[2021-09-27] MEDS: ZINC SULFATE 220 MG CAPSULE (FP) PO SCH (10:27)
[2021-09-27] MEDS: MEMANTINE HCL 10 MG TABLET (FP) PO SCH ×2 (10:27→21:42)
[2021-09-27] MEDS: MULTIVITAMINS (DAILY MVI) TABLET (FP) PO SCH (10:27)
[2021-09-27] MEDS: DONEPEZIL HCL 10 MG TABLET (FP) PO SCH (21:42)
[2021-09-27] MEDS: ATORVASTATIN CA 10 MG TABLET (FP) PO SCH (21:42)
[2021-09-28] MEDS: POLYETHYLENE GLYCOL (HEALTHYLAX) 3350 17 GM PACKET PO SCH ×2 (09:10→22:11)
[2021-09-28] MEDS: AMINO ACIDS/PROTEIN HYDROLYS 30 ML LIQUID.PKT PO SCH ×2 (09:10→17:24)
[2021-09-28] MEDS: ASCORBIC ACID 500 MG TABLET (FP) PO SCH (09:11)
[2021-09-28] MEDS: MULTIVITAMINS (DAILY MVI) TABLET (FP) PO SCH (09:11)
[2021-09-28] MEDS: LISINOPRIL 10 MG TABLET PO SCH (09:11)
[2021-09-28] MEDS: MEMANTINE HCL 10 MG TABLET (FP) PO SCH ×2 (09:11→22:09)
[2021-09-28] MEDS: ZINC SULFATE 220 MG CAPSULE (FP) PO SCH (09:11)
[2021-09-28] MEDS: HYDROCHLOROTHIAZIDE 12.5 MG CAPSULE (FP) PO SCH (09:11)
[2021-09-28] MEDS: COLLAGENASE CLOSTRIDIUM HIST. 30 GRAMS TUBE TP SCH (09:13)
[2021-09-28] MEDS: ATORVASTATIN CA 10 MG TABLET (FP) PO SCH (22:09)
[2021-09-28] MEDS: DONEPEZIL HCL 10 MG TABLET (FP) PO SCH (22:09)
[2021-09-29] MEDS: AMINO ACIDS/PROTEIN HYDROLYS 30 ML LIQUID.PKT PO SCH ×2 (08:55→16:47)
[2021-09-29] MEDS: MEMANTINE HCL 10 MG TABLET (FP) PO SCH ×2 (09:38→22:31)
[2021-09-29] MEDS: MULTIVITAMINS (DAILY MVI) TABLET (FP) PO SCH (09:38)
[2021-09-29] MEDS: POLYETHYLENE GLYCOL (HEALTHYLAX) 3350 17 GM PACKET PO SCH ×2 (09:38→22:31)
[2021-09-29] MEDS: ASCORBIC ACID 500 MG TABLET (FP) PO SCH (09:38)
[2021-09-29] MEDS: LISINOPRIL 10 MG TABLET PO SCH (09:38)
[2021-09-29] MEDS: COLLAGENASE CLOSTRIDIUM HIST. 30 GRAMS TUBE TP SCH (09:38)
[2021-09-29] MEDS: ZINC SULFATE 220 MG CAPSULE (FP) PO SCH (09:38)
[2021-09-29] MEDS: HYDROCHLOROTHIAZIDE 12.5 MG CAPSULE (FP) PO SCH (09:38)
[2021-09-29] MEDS: ATORVASTATIN CA 10 MG TABLET (FP) PO SCH (22:31)
[2021-09-29] MEDS: DONEPEZIL HCL 10 MG TABLET (FP) PO SCH (22:31)
[2021-09-30] MEDS: AMINO ACIDS/PROTEIN HYDROLYS 30 ML LIQUID.PKT PO SCH ×2 (08:59→16:43)
[2021-09-30] MEDS: ASCORBIC ACID 500 MG TABLET (FP) PO SCH (09:47)
[2021-09-30] MEDS: MULTIVITAMINS (DAILY MVI) TABLET (FP) PO SCH (09:47)
[2021-09-30] MEDS: MEMANTINE HCL 10 MG TABLET (FP) PO SCH ×2 (09:47→21:11)
[2021-09-30] MEDS: POLYETHYLENE GLYCOL (HEALTHYLAX) 3350 17 GM PACKET PO SCH ×2 (09:47→21:11)
[2021-09-30] MEDS: HYDROCHLOROTHIAZIDE 12.5 MG CAPSULE (FP) PO SCH (09:47)
[2021-09-30] MEDS: LISINOPRIL 10 MG TABLET PO SCH (09:47)
[2021-09-30] MEDS: ZINC SULFATE 220 MG CAPSULE (FP) PO SCH (09:47)
[2021-09-30] MEDS ORDERED: FENTANYL CITRATE/PF 50 MCG/ML VIAL ONE (10:33)
[2021-09-30] MEDS: COLLAGENASE CLOSTRIDIUM HIST. 30 GRAMS TUBE TP SCH (11:14)
[2021-09-30] MEDS: ATORVASTATIN CA 10 MG TABLET (FP) PO SCH (21:11)
[2021-09-30] MEDS: DONEPEZIL HCL 10 MG TABLET (FP) PO SCH (21:11)
[2021-10-01] MEDS: ASCORBIC ACID 500 MG TABLET (FP) PO SCH (09:01)
[2021-10-01] MEDS: HYDROCHLOROTHIAZIDE 12.5 MG CAPSULE (FP) PO SCH (09:01)
[2021-10-01] MEDS: ZINC SULFATE 220 MG CAPSULE (FP) PO SCH (09:01)
[2021-10-01] MEDS: MEMANTINE HCL 10 MG TABLET (FP) PO SCH (09:01)
[2021-10-01] MEDS: ACETAMINOPHEN 325 MG TABLET (FP) PO PRN ×2 (09:01→14:44)
[2021-10-01] MEDS: POLYETHYLENE GLYCOL (HEALTHYLAX) 3350 17 GM PACKET PO SCH (09:01)
[2021-10-01] MEDS: AMINO ACIDS/PROTEIN HYDROLYS 30 ML LIQUID.PKT PO SCH ×2 (09:01→16:41)
[2021-10-01] MEDS: LISINOPRIL 10 MG TABLET PO SCH (09:01)
[2021-10-01] MEDS: MULTIVITAMINS (DAILY MVI) TABLET (FP) PO SCH (09:01)
[2021-10-01] MEDS: COLLAGENASE CLOSTRIDIUM HIST. 30 GRAMS TUBE TP SCH (09:29)
[2021-10-01] MEDS ORDERED: BICALUTAMIDE 50 MG TABLET (FP) PO SCH (13:45)
[2021-10-01 13:58] VITALS: BP 121/57; PULSE 79
[2021-10-01 18:37] VITALS: TEMP 98.2
== END 2021-10-01 21:15 | DRG 629 ==
LOC: JER 16:07 → JERBED 22:18 → J7W 09-14 04:56 → JICU 09-15 11:30 → J2W 09-16 06:50 → J6S 09-20 16:26
PROVIDERS: ADMIT Internal Medicine; ATTEND Internal Medicine
PROC: 0Q903ZX Drainage of Lumbar Vertebra, Percutaneous Approach, Diagnostic (ICD-10-PCS; principal; 2021-09-30)
DX: E11.69 Type 2 diabetes mellitus with other specified complication (principal); M46.26 Osteomyelitis of vertebra, lumbar region; J98.11 Atelectasis; I47.1 Supraventricular tachycardia; L89.210 Pressure ulcer of right hip, unstageable; L89.220 Pressure ulcer of left hip, unstageable; E86.0 Dehydration; G20 Parkinson's disease; I10 Essential (primary) hypertension; K56.41 Fecal impaction; E78.5 Hyperlipidemia, unspecified; F03.90 Unspecified dementia, unspecified severity, without behavioral disturbance, psychotic disturbance, mood disturbance, and anxiety; Z74.01 Bed confinement status
CPT/HCPCS: 0241U-QW; 20225; 36415; 71045-TC-FY; 71250-TC; 72131-TC; 72158-TC; 72192-TC; 74176-TC; 74177-TC; 80053; 80061; 82550; 82553; 82962; 83036; 83605; 84153; 84154; 84155; 84165; 84443; 85025; 85610; 85651; 85730; 86140; 86480; 86850; 86900; 86901; 87040; 87070; 87075; 87205; 87389; 93005; 93010; 93306-TC; 97162-GP; 99285-25; A9579; C9803-CS; J1644; Q9967; U0003; U0005

== ENCOUNTER 2024-02-05 19:12 | Inpatient (IN) | payer OTHER ==
[2024-02-05 19:57] LABS: VENOUS BASE EXCESS -0.2 mmol/L (-2-2); VENOUS O2 SATURATION 69.5 % (70-80); VENOUS PCO2 46.3 mmHg (38-52); VENOUS PH 7.361 (7.310-7.410)
[2024-02-05] MEDS ORDERED: ACETAMINOPHEN INJECTION 100 ML ONE (20:01)
[2024-02-05 20:05] LABS: BASO % 0.4 % (0-2.0); EOS % 0.2 % (0-4.5); HEMATOCRIT 39.3 % (35.4-49); HEMOGLOBIN 12.6 GM/dL (11.7-16.9); LYMPH % 5.6 % (8-40); MCH 28.7 pg (25.7-33.7); MCHC 31.9 g/dl (32.0-35.9); MEAN PLT VOLUME 8.3 fl (7.5-11.1); MONO % 7.5 % (3.8-10.2); NEUT % 86.3 % (42.8-82.8); PLATELET COUNT 230 10^3/uL (134-434); RBC 4.37 M/mm3 (4.00-5.60); RDW 12.5 % (11.9-15.9); WHITE BLOOD COUNT 11.1 K/mm3 (4.0-10.0)
[2024-02-05] MEDS: SODIUM CHLORIDE 0.9% 500 ML INFUS.BAG IV ONE (20:08)
[2024-02-05] MEDS: ACETAMINOPHEN 1000 MG/100 ML BAG IVPB ONE (20:08)
[2024-02-05 20:10] LABS: EPI CELLS 4 /uL (0-25.1); HYALINE CASTS 1 /uL (0-3.1); PH,URINE 8.5 (5.0-8.0); URINE APPEARANCE CLOUDY; URINE BACTERIA >9,000 /uL (0-1359); URINE BILIRUBIN NEGATIVE (NEGATIVE); URINE COLOR YELLOW; URINE GLUCOSE (UA) TRACE (NEGATIVE); URINE KETONE NEGATIVE (NEGATIVE); URINE LEUK ESTERASE 2+ (NEGATIVE); URINE NITRITE NEGATIVE (NEGATIVE); URINE PROTEIN 1+ (NEGATIVE); URINE RBC 4 /uL (0-23.9); URINE WBC 207 /uL (0-25.8)
[2024-02-05] MEDS ORDERED: PIPERACILLIN/TAZOB 4.5 GM 4.5 GM/100 ML BAG IVPB ONE (20:14)
[2024-02-05] MEDS: PIPERACILLIN/TAZOB 4.5 GM 4.5 GM in DEXTROSE 5%-WATER 100 ML IVPB ONE (20:20)
[2024-02-05 20:21] LABS: POTASSIUM 3.7 mmol/L (3.5-5.1)
[2024-02-05 20:24] LABS: ALBUMIN 3.6 g/dl (3.4-5.0); CALCIUM 8.7 mg/dL (8.5-10.1)
[2024-02-05 20:25] LABS: BLOOD UREA NITROGEN 34.5 mg/dL (7-18); MAGNESIUM 2.1 mg/dL (1.8-2.4)
[2024-02-05 20:28] LABS: CREATININE 1.4 mg/dL (0.55-1.3)
[2024-02-05 20:29] LABS: BILIRUBIN,TOTAL 0.6 mg/dL (0.2-1); TOT PROT 7.2 g/dl (6.4-8.2)
[2024-02-05 20:45] LABS: INR 1.11 (0.83-1.09); PROTHROMBIN TIME (PATIENT) 12.7 SEC (9.7-13.0)
[2024-02-05 20:53] LABS: LACTIC ACID 4.9 mmol/L (0.4-2.0)
[2024-02-05] MEDS: VANCOMYCIN HCL 1,500 MG in DEXTROSE 5%-WATER - 500 ML IVPB ONE (20:53)
[2024-02-05] MEDS: VANCOMYCIN PREMIX 1.5 GM 1,500 MG/300 ML BAG IVPB ONE (21:03)
[2024-02-05 22:31] LABS: LACTIC ACID 4.5 mmol/L (0.4-2.0)
[2024-02-05] MEDS: SODIUM CHLORIDE 1,000 ML IV SCH (23:09)
[2024-02-06] MEDS ORDERED: ACETAMINOPHEN INJECTION 100 ML ONE (01:01)
[2024-02-06 02:49] VITALS: BMI 23.1
[2024-02-06] MEDS ORDERED: PIPERACILLIN/TAZOB 3.375 GM 3.375 GM in DEXTROSE 5%-WATER - 50 ML IVPB SCH (03:00)
[2024-02-06] MEDS: PIPERACILLIN/TAZOB 3.375 GM 50 ML IVPB SCH (03:14)
[2024-02-06 08:01] LABS: POTASSIUM 3.6 mmol/L (3.5-5.1)
[2024-02-06 08:08] LABS: ALBUMIN 3.2 g/dl (3.4-5.0)
[2024-02-06 08:11] LABS: CREATININE 1.2 mg/dL (0.55-1.3)
[2024-02-06 08:12] LABS: BILIRUBIN,TOTAL 0.8 mg/dL (0.2-1); TOT PROT 6.5 g/dl (6.4-8.2)
[2024-02-06 08:29] LABS: BASO % 0.5 % (0-2.0); EOS % 0.3 % (0-4.5); HEMATOCRIT 37.5 % (35.4-49); HEMOGLOBIN 11.7 GM/dL (11.7-16.9); LYMPH % 5.6 % (8-40); MCH 28.4 pg (25.7-33.7); MCHC 31.2 g/dl (32.0-35.9); MEAN CELL VOLUME 91.1 fl (80-96); MEAN PLT VOLUME 8.6 fl (7.5-11.1); MONO % 6.3 % (3.8-10.2); NEUT % 87.3 % (42.8-82.8); PLATELET COUNT 199 10^3/uL (134-434); RBC 4.12 M/mm3 (4.00-5.60); RDW 12.7 % (11.9-15.9); WHITE BLOOD COUNT 14.8 K/mm3 (4.0-10.0)
[2024-02-06] MEDS: SODIUM CHLORIDE 1,000 ML IV SCH ×2 (09:15→16:37)
[2024-02-06] MEDS: SODIUM CHLORIDE 500 ML IV STA (09:16)
[2024-02-06] MEDS: MEMANTINE HCL 10 MG TABLET (FP) PO SCH (10:01)
[2024-02-06] MEDS: LISINOPRIL 10 MG TABLET PO SCH (10:01)
[2024-02-06 13:59] LABS: LACTIC ACID 2.3 mmol/L (0.4-2.0)
[2024-02-06] MEDS: CEFTRIAXONE 1 G/50 ML PREMIX 50 ML IVPB SCH (14:22)
[2024-02-06] MEDS: HEPARIN NA (PORCINE) 5,000 UNITS/ML 1ML VIAL SQ SCH ×2 (14:23→21:19)
[2024-02-06] MEDS: ATORVASTATIN CA 10 MG TABLET (FP) PO SCH (21:16)
[2024-02-06] MEDS: DONEPEZIL HCL 10 MG TABLET (FP) PO SCH (21:17)
[2024-02-06] MEDS: ACETAMINOPHEN 500 MG TABLET (FP) PO ONE (21:45)
[2024-02-06] MEDS ORDERED: DONEPEZIL HCL 10 MG TABLET (FP) PO SCH (22:00)
[2024-02-06] MEDS ORDERED: ATORVASTATIN CA 10 MG TABLET (FP) PO SCH (22:00)
[2024-02-07] MEDS: VANCOMYCIN/WATER FOR INJ (PEG) 1,000 MG/200 ML BAG IVPB ONE (00:35)
[2024-02-07] MEDS: LISINOPRIL 10 MG TABLET PO SCH (09:38)
[2024-02-07] MEDS: MEMANTINE HCL 10 MG TABLET (FP) PO SCH (09:38)
[2024-02-07] MEDS: CEFTRIAXONE 1 G/50 ML PREMIX 50 ML IVPB SCH (09:56)
[2024-02-07] MEDS: PIPERACILLIN/TAZOB 3.375 GM 50 ML IVPB SCH (14:25)
[2024-02-07] MEDS: VANCOMYCIN/WATER FOR INJ (PEG) 1,000 MG/200 ML BAG IVPB SCH (21:56)
[2024-02-08 10:24] LABS: BASO % 0.6 % (0-2.0); EOS % 0.7 % (0-4.5); HEMATOCRIT 33.3 % (35.4-49); HEMOGLOBIN 10.9 GM/dL (11.7-16.9); MCH 28.8 pg (25.7-33.7); MCHC 32.9 g/dl (32.0-35.9); MEAN CELL VOLUME 87.6 fl (80-96); MEAN PLT VOLUME 8.4 fl (7.5-11.1); MONO % 8.2 % (3.8-10.2); NEUT % 78.5 % (42.8-82.8); PLATELET COUNT 214 10^3/uL (134-434); RDW 12.8 % (11.9-15.9)
[2024-02-08 10:47] LABS: POTASSIUM 3.8 mmol/L (3.5-5.1)
[2024-02-08 10:53] LABS: ALBUMIN 3.1 g/dl (3.4-5.0); BLOOD UREA NITROGEN 20.4 mg/dL (7-18); CALCIUM 8.8 mg/dL (8.5-10.1)
[2024-02-08 10:55] LABS: CHOLESTEROL 126 mg/dL (50-200); LDL CHOLESTEROL (ONLY SJRH) 66 mg/dL (5-100)
[2024-02-08 10:57] LABS: CREATININE 0.9 mg/dL (0.55-1.3)
[2024-02-08 10:58] LABS: HDL CHOLESTEROL 39 mg/dL (40-60); TOT PROT 6.8 g/dl (6.4-8.2)
[2024-02-08] MEDS: LISINOPRIL 10 MG TABLET PO SCH (21:25)
[2024-02-09 09:42] LABS: BASO % 0.6 % (0-2.0); EOS % 2.8 % (0-4.5); HEMATOCRIT 31.3 % (35.4-49); HEMOGLOBIN 10.4 GM/dL (11.7-16.9); LYMPH % 10.2 % (8-40); MCH 29.1 pg (25.7-33.7); MCHC 33.2 g/dl (32.0-35.9); MEAN CELL VOLUME 87.6 fl (80-96); MEAN PLT VOLUME 8.1 fl (7.5-11.1); MONO % 6.3 % (3.8-10.2); NEUT % 80.1 % (42.8-82.8); PLATELET COUNT 221 10^3/uL (134-434); RBC 3.57 M/mm3 (4.00-5.60); RDW 13.1 % (11.9-15.9); WHITE BLOOD COUNT 9.7 K/mm3 (4.0-10.0)
[2024-02-09] MEDS: FLU VACCINE (FLULAVAL) PF 45 MCG/0.5 ML SYRINGE 2024-2025 IM ONE (13:22)
[2024-02-10 05:35] VITALS: RESP 20
[2024-02-10] MEDS: CEFTRIAXONE 1 G/50 ML PREMIX 50 ML IVPB SCH (12:22)
[2024-02-11] MEDS: PNEUMOC 20-VAL CONJ-DIP CRM/PF 0.5 ML SYRINGE IM ONE (11:12)
[2024-02-12 02:55] VITALS: BP 158/92; PULSE 70; TEMP 99
== END 2024-02-12 03:45 | disposition home or self-care (01) | DRG 871 ==
LOC: JER 19:12 → JERBED 20:55 → J4W 02-06 02:10 → J6S 02-06 16:12
PROVIDERS: ADMIT Internal Medicine; ATTEND Internal Medicine
DX: A41.89 Other specified sepsis (principal); R53.2 Functional quadriplegia; N17.9 Acute kidney failure, unspecified; M46.26 Osteomyelitis of vertebra, lumbar region; N39.0 Urinary tract infection, site not specified; E11.9 Type 2 diabetes mellitus without complications; I10 Essential (primary) hypertension; F03.90 Unspecified dementia, unspecified severity, without behavioral disturbance, psychotic disturbance, mood disturbance, and anxiety; G20.A1 Parkinson's disease without dyskinesia, without mention of fluctuations; E78.5 Hyperlipidemia, unspecified; M47.812 Spondylosis without myelopathy or radiculopathy, cervical region; R79.89 Other specified abnormal findings of blood chemistry
CPT/HCPCS: 0241U-QW; 36415; 71045-TC-FY; 80053; 80061; 81003; 82803; 82962; 83036; 83605; 83735; 84484; 85025; 85610; 85730; 86850; 86900; 86901; 87040; 87086; 87186; 90656; 90677; 93005; 93010; 97116-GP; 97161-GP; 99285-25; G0008; G0009; J0131; J1644